=== PATIENT | male | born 1980 | race Caucasian/White ===

== ENCOUNTER 2019-11-03 11:04 | Emergency (ER) | payer OTHER, SELFPAY ==
[2019-11-03 11:20] VITALS: BP 132/93; PULSE 81; RESP 20; TEMP 36.7; O2SAT 98; BMI 25.1
[2019-11-03 11:32] VITALS: RESP 15
--- NOTE | 2019-11-03 12:02 | W.ED.GENADLT ---
Documented by User: SHENG Pryor 11/03/19 17:56 HPI - General Adult General: Chief complaint: Needlestick/Injury/Exposure Stated complaint: FLUID EXPOSURE Time Seen by Provider: 11/03/19 11:25 History of Present Illness: HPI narrative: Patient is a 39-year-old male who is in [employer] [facility] [employer] [facility] [employer] employed comes to the ED after a fluid exposure from a patient. 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 During that process sputum from the ICU patient flung into sitters face. He denies it getting into his mouth or eyes. He inform staff of the event and they told to come down to the ED to get some blood work done to check for HIV and hepatitis. Patient says that the ICU patient he was watching did report that he has hepatitis. Patient is having no current symptoms such as fever, upper respiratory symptoms, shortness of breath, chest pain, abdominal pain, nausea, vomiting, bladder or bowel symptoms. Associated symptoms: Deny chest pain, dyspnea, headache(s), nausea, rash, palpitations or vomiting Review of Systems Const: Denies: fever, chills or fatigue Eyes: Denies: change in vision or eye discomfort ENMT: Denies: throat pain, painful swallowing, nasal discharge or nasal congestion Card: Denies: chest pain, palpitations, edema, swelling of feet/ankles, shortness of breath on exertion or shortness of breath when lying down Resp: Denies: shortness of breath, productive cough or non-productive cough GI: Denies: abdominal pain, nausea, vomiting, diarrhea, constipation or blood in stool : Denies: flank pain, difficulty urinating, painful urination or blood in urine Musc: Denies: neck pain, back pain or extremity swelling Skin/Breast: Denies: rash or new lesion Neuro: Denies: headache, numbness in extremities or weakness in extremities PFS ED PFSH: Social History Smoking and tobacco status: current every day smoker cigarettes Years cigarettes smoked: 23 Quit status (tobacco): quit date established Second hand smoke exposure: No Smoking risk assessment/counseling performed?: Yes Tobacco counseling given: counseling >3 minutes Physical Exam Const: COMMON NORMALS: no apparent distress, oriented x3, healthy appearing and alert GENERAL APPEARANCE: cooperative and comfortable HENMT: COMMON NORMALS: normocephalic HEAD & SCALP: normocephalic MOUTH: oral and palatal mucosa normal THROAT: posterior oropharynx normal and uvula midline Neck/C-Spine: COMMON NORMALS: supple GENERAL: Yes normal visual inspection Resp: COMMON NORMALS: normal respiratory effort, no retractions, no use of accessory muscles and clear to auscultation bilaterally AUSCULTATION: clear to auscultation bilaterally Cardio: COMMON NORMALS: regular rate, regular rhythm, S1 normal heart sound, S2 normal heart sound, no gallops, no clicks, no murmurs and peripheral pulses 2+ throughout RATE: regular rate RHYTHM: regular rhythm HEART SOUNDS: S1 normal and S2 normal PERIPHERAL PULSES: pulses 2+ throughout GI: COMMON NORMALS: normal to inspection, nondistended, normoactive bowel sounds, soft to palpation, non-tender and no masses PALPATION: Yes soft : COMMON NORMALS: Yes no CVA tenderness BLADDER/KIDNEY EXAM: Yes no CVA tenderness Back/Pelvis: COMMON NORMALS: no CVA tenderness Extremity: COMMON NORMALS: normal to inspection Neuro: COMMON NORMALS: oriented x3 and moves all extremities SENSORIUM/ORIENTATION: Yes alert Skin: COMMON NORMALS: no rashes or lesions noted GENERAL SKIN EXAM: no rashes or lesions noted and dry skin Course Vital Signs: Vital signs: Vital Signs Temperature 98.1 F 11/03/19 11:20 Pulse Rate 81 11/03/19 11:20 Respiratory Rate 15 11/03/19 11:32 Blood Pressure 132/93 11/03/19 11:20 Pulse Oximetry 98 11/03/19 11:20 MDM - General Adult MDM Narrative: Medical decision making narrative: Patient is an employee here at [facility] and 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 Patient became aware and pulled out his breathing tube and during this incident the sitter got some sputum in his face. It did not go into his mouth or eyes. Patient told me that the ICU patient he was sitting stated he had hepatitis. He was told to come to the ED for evaluation and to get some blood work to check for hepatitis and HIV. Physical exam showed a healthy 39-year-old male in no acute distress or pain. He was having no current symptoms. HIV and hepatitis blood work was performed here in the ED and all were nonreactive. Patient was discharged and returned to work before lab results were complete. I informed patient that [facility] will notify him of the blood work results and that he should follow-up with his PCP in 7 days for reevaluation. Patient understood and agreed with plan. Lab Data: Attestation: I reviewed the patient's lab results. Labs: Lab Results 11/03/19 11/03/19 Range/Units 12:13 12:13 Hepatitis A IgM Ab Non-reactive (Nonreactive) Hep Bs Antigen Non-reactive (Nonreactive) Hep Bs Antibody 3.5 (0-8.5) Hep B Core Total A b Non-reactive (Nonreactive) Hepatitis C Antibo dy Non-reactive (Nonreactive) HIV 1&2 Ab & HIV 1 Ag Non-reactive (Non-Reactiv) HIV 1&2 Antibody Non-reactive (Non-Reactiv) Discharge Plan Discharge Patient Disposition: Home, Self-Care Clinical Impression: Exposure to blood or body fluid Condition: Stable Prescriptions: No Action clonidine HCl 0.1 mg tablet 0.1 mg PO BID PRN (Reason: anxiety) Qty: 60 RF: 2 gabapentin 300 mg capsule 300 mg PO QID Qty: 120 RF: 2 hydroxyzine HCl 50 mg tablet 50 mg PO TID PRN (Reason: anxiety) Qty: 90 RF: 2 baclofen 10 mg tablet 10 mg PO TID RF: 0 nicotine (polacrilex) 4 mg gum 4 mg BUCCAL Q8H PRN (Reason: nicotine cravings) RF: 0 Discharge Orders: Discharge Order (Routine); Ordered 11/03/19 Ordered By: Polo Chakraborty Referrals: Edwin Price MD [Primary Care Provider] - Discharge Diet: Regular Discharge Activity: Resume usual activity Patient Instructions: Blood/Body Fluid Exposure - Occupational Activity Restrictions/Additional Instructions: Follow-up with your PCP in 7 days for reevaluation. [facility] will contact you about the results of the blood tests performed today. Discharge Date/Time: 11/03/19 13:08 Coding Level of Care Code ED Student Services Vice President for Chg Fwd Exam Comprehensive Documented by User: Uriah Patel DO 11/03/19 18:01 HPI - General Adult General: Chief complaint: Needlestick/Injury/Exposure Stated complaint: FLUID EXPOSURE Time Seen by Provider: 11/03/19 11:25 PFSH ED PFSH: Social History Smoking and tobacco status: current every day smoker cigarettes Years cigarettes smoked: 23 Quit status (tobacco): quit date established Second hand smoke exposure: No Smoking risk assessment/counseling performed?: Yes Tobacco counseling given: counseling >3 minutes Course Vital Signs: Vital signs: Vital Signs Temperature 98.1 F 11/03/19 11:20 Pulse Rate 81 11/03/19 11:20 Respiratory Rate 15 11/03/19 11:32 Blood Pressure 132/93 11/03/19 11:20 Pulse Oximetry 98 11/03/19 11:20 MDM - General Adult MDM Narrative: Medical decision making narrative: Reviewed with Palmer agree with assessment and plan Lab Data: Labs: Lab Results 11/03/19 11/03/19 Range/Units 12:13 12:13 Hepatitis A IgM Ab Non-reactive (Nonreactive) Hep Bs Antigen Non-reactive (Nonreactive) Hep Bs Antibody 3.5 (0-8.5) Hep B Core Total A b Non-reactive (Nonreactive) Hepatitis C Antibo dy Non-reactive (Nonreactive) HIV 1&2 Ab & HIV 1 Ag Non-reactive (Non-Reactiv) HIV 1&2 Antibody Non-reactive (Non-Reactiv) Discharge Plan Discharge Patient Disposition: Home, Self-Care Clinical Impression: Exposure to blood or body fluid Condition: Stable Prescriptions: No Action clonidine HCl 0.1 mg tablet 0.1 mg PO BID PRN (Reason: anxiety) Qty: 60 RF: 2 gabapentin 300 mg capsule 300 mg PO QID Qty: 120 RF: 2 hydroxyzine HCl 50 mg tablet 50 mg PO TID PRN (Reason: anxiety) Qty: 90 RF: 2 baclofen 10 mg tablet 10 mg PO TID RF: 0 nicotine (polacrilex) 4 mg gum 4 mg BUCCAL Q8H PRN (Reason: nicotine cravings) RF: 0 Discharge Orders: Discharge Order (Routine); Ordered 11/03/19 Ordered By: Polo Chakraborty Referrals: Edwin Price MD [Primary Care Provider] - Discharge Diet: Regular Discharge Activity: Resume usual activity Patient Instructions: Blood/Body Fluid Exposure - Occupational Activity Restrictions/Additional Instructions: Follow-up with your PCP in 7 days for reevaluation. [facility] will contact you about the results of the blood tests performed today. Discharge Date/Time: 11/03/19 13:08 Coding Level of Care Code ED Student Services Vice President for Chg Fwd Exam Comprehensive
[2019-11-03 12:54] LABS: Hepatitis A Antibody IgM. Non-Reactive (Nonreactive); Hepatitis B Surface AB. 3.5 (0-8.5); Hepatitis B Surface Antigen. Non-Reactive (Nonreactive); Hepatitis C Virus Antibody Non-Reactive (Nonreactive)
[2019-11-03 13:50] LABS: HIV 1 & 2 Antibody Non-Reactive (Non-Reactiv); HIV 1 & 2 Antigen Non-Reactive (Non-Reactiv)
== END 2019-11-03 13:08 | disposition home or self-care (01) ==
PROVIDERS: Emergency Provider Physician Assistant; PCP Family Medicine
DX: Z77.21 Contact with and (suspected) exposure to potentially hazardous body fluids (principal)
CPT/HCPCS: 12345; 36415; 86705; 86706; 86709; 86803; 87340; 87806; 99282

== ENCOUNTER 2020-06-25 07:59 | Inpatient (IN) | payer SELFPAY ==
[2020-06-25] VITALS (21 sets, daily range): BP systolic 121–150; BP diastolic 85–110; PULSE 87–122; RESP 12–26; TEMP 36.1–37; O2SAT 94–98; BMI 26.6
--- NOTE | 2020-06-25 08:33 | US_ITS ---
WS: [id number] ULTRASOUND ABDOMEN LIMITED CLINICAL INFORMATION: abd pain COMPARISON: None. FINDINGS: Exam somewhat limited by bowel gas. Liver Size: Upper limits of normal Craniocaudal length: 15.7 cm. Echogenicity: Dense Surface nodularity: None. Mass (size and location): None. Bile ducts Intrahepatic ducts: Normal. Common bile duct diameter: 0.3 cm. Gallbladder Normal. Gallstones: None. Gallbladder sludge: None. Gallbladder wall thickening: None. Pericholecystic fluid: None. Sonographic Valente sign: Absent. Pancreas Normal as visualized. Right kidney: Normal. Hydronephrosis: None. Size: 10.6 cm x 5.3 cm x 4.4 cm. Abdominal aorta and IVC Visualized portions are normal. Ascites: None. US/US liver [id number] IMPRESSION: 1. Exam somewhat limited by bowel gas. 2. Diffuse fatty infiltration of the liver. Liver size upper limits of normal. 3. Normal gallbladder. 4. No hydronephrosis in right kidney. 5. No other significant findings.
--- NOTE | 2020-06-25 08:33 | ECG_ITS ---
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 Measurements Intervals [place] Rate: 105 P: 58 MA: 123 QRS: 53 QRSD: 88 T: 47 QT: 344 QTc: 455 Interpretive Statements SINUS TACHYCARDIA NONSPECIFIC T-WAVE ABNORMALITY ABNORMAL RHYTHM ECG Compared to ECG 05/26/2019 15:55:38 T-wave abnormality now present Sinus rhythm no longer present Short MA interval no longer present Electronically Signed On 06-25-2020 22:22:02 PATTERN DESIGNER by Wei Castillo M.D. [id number]
[2020-06-25] MEDS: LORazepam 2 mg/mL INJ 1 mL IVP ×5 (08:41→20:57)
[2020-06-25] MEDS: sodium chloride 0.9% 1,000 ML 999 ML IV ×2 (08:41→09:22)
[2020-06-25] MEDS: ondansetron 2 mg/ML SDV 2 mL 4 MG IVP (08:41)
--- NOTE | 2020-06-25 08:43 | CTR_ITS ---
PROCEDURE INFORMATION: Exam: CT Abdomen And Pelvis With Contrast Exam date and time: 06/25/2020 8:47 AM Age: 39 years old Clinical indication: Nausea; Abdominal pain; Generalized; Additional info: Abd pain, nausea after heavy drinking TECHNIQUE: Imaging protocol: Computed tomography of the abdomen and pelvis with intravenous contrast. Radiation optimization: All CT scans at this facility use at least one of these dose optimization techniques: automated exposure control; mA and/or kV adjustment per patient size (includes targeted exams where dose is matched to clinical indication); or iterative reconstruction. Contrast material: OMNI 300; Contrast volume: 95 ml; Contrast route: INTRAVENOUS (IV); COMPARISON: CT abdomen pelvis w con* [id number] 05/03/2019 1:15 PM RADIATION DOSE METRICS: Total DLP (mGy-cm): 813.36 FINDINGS: Liver: There is diffuse decreased density of the liver indicating fatty liver. There are no obvious liver masses. Gallbladder and bile ducts: Normal. No calcified stones. No ductal dilation. Pancreas: Normal. No ductal dilation. Spleen: Normal. No splenomegaly. Adrenal glands: Normal. No mass. Kidneys and ureters: Normal. No hydronephrosis. Stomach and bowel: There is diffuse mural thickening of the colon especially in the sigmoid colon. There is also fatty infiltration of the wall of the colon having the halo fat sign. There is also mild mural thickening of the terminal ileum. This may be due to inflammatory bowel disease. Correlation with history is advised. There is no evidence of bowel obstruction or dilatation. Appendix: No evidence of appendicitis. Intraperitoneal space: Unremarkable. No free air. No significant fluid collection. Vasculature: Unremarkable. No abdominal aortic aneurysm. Lymph nodes: Unremarkable. No enlarged lymph nodes. Urinary bladder: Unremarkable as visualized. Reproductive: Unremarkable as visualized. Bones/joints: There is spondylolysis of L5 on the right side. No malalignment is seen.. No acute fracture. Soft tissues: Unremarkable. CT/CT abdomen pelvis w con* [id number] IMPRESSION: 1. Diffuse mural thickening of the colon also involving the terminal ileum. There is prominent fatty infiltration of the wall of the colon. This is most likely due to inflammatory bowel disease. 2. Fatty liver. 3. No other acute abnormality is seen with no evidence of obstruction free air free fluid. Radiation Dose CTDIVOL = (mGy): DLP = 813.36 (mGy-cm)
[2020-06-25] MEDS: pantoprazole 40 mg SDV 80 MG IVP (08:49)
[2020-06-25 08:53] LABS: Basophils # 0.1 10^3/uL (0.0-0.1); Basophils % 0.6 %; Eosinophils # 0.2 10^3/uL (0.0-0.8); Eosinophils % 1.4 %; Hemoglobin 16.9 g/dL (11.7-16.6); Lymphocytes # 3.1 10^3/uL (0.8-4.8); Lymphocytes % 27.9 %; Mean Corpuscular HGB Conc 36.7 g/dL (30.0-36.0); Mean Corpuscular Hemoglobin 33.1 pg (28.0-34.0); Mean Corpuscular Volume 90.2 fL (80-94); Mean Platelet Volume 10.5 fL (7.4-10.4); Monocytes # 0.7 10^3/uL (0.2-0.9); Monocytes % 6.6 %; Neutrophils # 7.01 10^3/uL (1.8-7.7); Neutrophils % 63.1 %; Nucleated Red Blood Cells % 0 %; Platelet Count 175 10^3/cmm (130-400); Red Cell Distribution Width 13.2 % (12.1-15.1); White Blood Count 11.1 10^3/uL (4.0-10.0)
[2020-06-25 09:01] LABS: INR 1.03 (0.8-1.2); Partial Thromboplastin Time 27.8 SECONDS (23.9-36.7)
[2020-06-25 09:06] LABS: Alanine Aminotransferase 142 U/L (0-41); Albumin Level 3.9 g/dL (3.5-5.2); Alcohol Level 60 mg/dL (0-10); Alkaline Phosphatase 205 IU/L (40-130); Aspartate Amino Transferase 269 U/L (0-40); Blood Urea Nitrogen 6 mg/dL (6-20); Calcium 8.8 mg/dL (8.5-10.5); Carbon Dioxide 23 mmol/L (22-29); Chloride 94 mmol/L (98-107); Globulin 2.7 g/dL (1.3-4.6); Glomerular Filtration Rate 83.2 mL/min (90-130); Glucose 111 mg/dL (65-115); Lipase 30 U/L (13-60); Osmolality Calculated 280 mOsm/kg (285-295); Sodium 136 mmol/L (136-145); Total Bilirubin 1.5 mg/dL (0.15-1.2); Total Protein 6.6 g/dL (6.6-8.7)
[2020-06-25 09:08] LABS: Anion Gap 22.1 (5-19); Potassium 3.1 mmol/L (3.5-5.1)
[2020-06-25] MEDS: promethazine 25 mg/mL SDV 1 mL IM (09:20)
--- NOTE | 2020-06-25 09:20 | ED_ITS ---
HPI - Alcohol General: Chief Complaint: Alcohol Stated Complaint: Drinking Heavily Recently/Unable to eat/Nausea Time Seen by Provider: 06/25/20 08:01 History of Present Illness: HPI narrative: 39-year-old male comes in complaining of acute nausea and vomiting that has been progressively worsening to the point where he cannot keep down water. He states his he drinks regularly daily throughout the entire day. Earlier this year he was involved in an inpatient rehab program after he was discharged he states he did fairly well he continued on outpatient medications until he ran out and then he did not do any follow-up through [facility] as an outpatient so he stopped taking his medication shortly after began drinking again he is been continually escalating his drinking since then. Initially tells me is not vomited any blood or passing blood in the stool or had any melenic stools but after he left the room he reports having had some hematemesis. MD complaint: alcohol dependence Last drink: Just [employer]PER[employer] Chronic alcohol use: Yes Previous visits for alcohol intoxication: Yes Recent trauma: No Associated symptoms: Reports abdominal pain, depression, hematemesis, nausea and vomiting; Deny diaphoresis, involuntary movements, melena, seizure-like activity, suicidal ideation or syncope Treatments prior to arrival: none Review of Systems Const: Denies: diaphoresis ENMT: Denies: throat pain, ear or mastoid pain, nasal discharge or nasal congestion Card: Denies: syncope Resp: Denies: dyspnea, productive cough or non-productive cough GI: Reports: abdominal pain, nausea, vomiting and hematemesis; Denies: melena : Denies: flank pain, dysuria, urinary frequency or urinary urgency Skin/Breast: Denies: rash or pruritus Neuro: Denies: seizure-like activity or involuntary movements Psych: Reports: depression; Denies: suicidal ideation [facility] ED PFSH: Medical History (Updated 06/25/20 @ 12:52 by Uriah Patel DO) Alcoholism Depression with anxiety History of drug use Tobacco dependency Family History Other Cancer Social History Smoking and tobacco status: current every day smoker cigarettes Years cigarettes smoked: 23 Quit status (tobacco): quit date established Second hand smoke exposure: No Smoking risk assessment/counseling performed?: Yes Tobacco counseling given: counseling >3 minutes Physical Exam Const: COMMON NORMALS: no acute distress GENERAL APPEARANCE: cooperative and comfortable ORIENTATION/CONSCIOUSNESS: Yes awake, Yes oriented to person, Yes oriented to place and Yes oriented to time HENMT: COMMON NORMALS: normocephalic, atraumatic and hearing grossly normal bilaterally HEAD & SCALP: normocephalic and atraumatic Eye: COMMON NORMALS: Equal, round and reactive pupils present, EOMs intact b ilaterally, conjunctivae normal and no scleral icterus CONJUNCTIVA: Yes conjunctivae normal PUPIL: Yes Equal, round and reactive pupils present Neck/C-Spine: COMMON NORMALS: full ROM, no lymphadenopathy, supple and no JVD Lymph: LYMPHATIC: no lymphadenopathy noted and no lymphedema noted Resp: COMMON NORMALS: normal respiratory effort, No retractions, No use of accessory muscles and clear to auscultation bilaterally AUSCULTATION: clear to auscultation bilaterally Cardio: COMMON NORMALS: no JVD, regular rate, regular rhythm and No murmurs present (Cardio) RATE: regular rate RHYTHM: regular rhythm GI: COMMON NORMALS: Soft to palpation and No hepatosplenomegaly present PALPATION: Yes Soft to palpation, Yes Tenderness to palpation present (GI) (epigastric), No Guarding due to palpation present (GI) and Yes No hepatos plenomegaly present Extremity: COMMON NORMALS: normal to inspection, capillary refill normal, no clubbing, cyanosis or edema, no calf tenderness and no pedal edema Neuro: SENSORIUM/ORIENTATION: Yes oriented to person, Yes oriented to place and Yes oriented to time Skin: COMMON NORMALS: no rashes or lesions noted GENERAL SKIN EXAM: no nataliia hes or lesions noted Course Vital Signs: Vital signs: Vital Signs Temperature 97.2 F L 06/25/20 08:08 Pulse Rate 117 H 06/25/20 11:07 Respiratory Rate 16 06/25/20 11:07 Blood Pressure 143/102 06/25/20 08:08 Pulse Oximetry 97 06/25/20 11:07 MDM - Alcohol MDM Narrative: Medical decision making narrative: Patient has signs symptoms of withdrawal in addition to that he has pancolitis appearance on his CT. He has had that previously seems to be indicative more of inflammatory bowel. We will go ahead and admit discussed Dr. Atwood orders have been written patient go to the ICU. Lab Data: Attestation: I reviewed the patient's lab results. Labs: Lab Results 06/25/20 06/25/20 06/25/20 Range/Units 08:21 08:21 08:21 WBC 11.1 H (4.0-10.0) 10^3/ uL RBC 5.10 (4.1-5.3) 10^6/u L Hgb 16.9 H (11.7-16.6) g/dL Hct 46.0 (42.0-52.0) % MCV 90.2 (80-94) fL MCH 33.1 (28.0-34.0) pg MCHC 36.7 H (30.0-36.0) g/dL RDW 13.2 (12.1-15.1) % Plt Count 175 (130-400) 10^3/c mm MPV 10.5 H (7.4-10.4) fL Neut % (Auto) 63.1 % Lymph % (Auto) 27.9 % [place] % (Auto) 6.6 % Eos % (Auto) 1.4 % Baso % (Auto) 0.6 % Neut # (Auto) 7.01 (1.8-7.7) 10^3/u L Lymph # (Auto) 3.1 (0.8-4.8) 10^3/u L [place] # (Auto) 0.7 (0.2-0.9) 10^3/u L Eos # (Auto) 0.2 (0.0-0.8) 10^3/u L Baso # (Auto) 0.1 (0.0-0.1) 10^3/u L Nucleated RBC % (a uto) 0 % Nucleated RBCs # 0.0 /100WBC PT 13.80 (12.1-14.9) SECO NDS INR 1.03 (0.8-1.2) APTT 27.8 (23.9-36.7) SECO NDS Sodium 136 (136-145) mmol/L Potassium 3.1 L (3.5-5.1) mmol/L Chloride 94 L (98-107) mmol/L Carbon Dioxide 23 (22-29) mmol/L Anion Gap 22.1 H (5-19) BUN 6 (6-20) mg/dL Creatinine 1.0 (0.7-1.2) mg/dL GFR Calculation 83.2 L (90-130) mL/min Glucose 111 (65-115) mg/dL Calculated Osmolal ity 280 L (285-295) mOsm/k g Lactic Acid (0.5-2.2) mmol/L Calcium 8.8 (8.5-10.5) mg/dL Magnesium (1.7-2.3) mg/dL Total Bilirubin 1.5 H (0.15-1.2) mg/dL AST 269 H (0-40) U/L ALT 142 H (0-41) U/L Alkaline Phosphata se 205 H (40-130) IU/L Total Protein 6.6 (6.6-8.7) g/dL Albumin 3.9 (3.5-5.2) g/dL Globulin 2.7 (1.3-4.6) g/dL Lipase 30 (13-60) U/L TSH (0.27-4.20) uIU/ mL Urine Color (Yellow) Urine Appearance (CLEAR) Urine pH (5-7) Ur Specific Gravit y (1.005-1.030) Urine Protein (Negative) Urine Glucose (UA) (Normal) Urine Ketones (Negative) Urine Blood (Negative) Urine Nitrate (Negative) Urine Bilirubin (Negative) Urine Urobilinogen (Negative) mg/dL Ur Leukocyte Melyssa ase (Negative) Urine RBC (0-2) /hpf Urine WBC (0-5) /hpf Ur Squamous Epith Cells (0-5) /hpf Calcium Oxalate Cr ystal /hpf Amorphous Sediment Urine Bacteria (NONE) /hpf Urine Mucus /hpf Ethyl Alcohol 60 H (0-10) mg/dL 06/25/20 06/25/20 06/25/20 Range/Units 08:21 09:33 11:44 WBC (4.0-10.0) 10^3/ uL RBC (4.1-5.3) 10^6/u L Hgb (11.7-16.6) g/dL Hct (42.0-52.0) % MCV (80-94) fL MCH (28.0-34.0) pg MCHC (30.0-36.0) g/dL RDW (12.1-15.1) % Plt Count (130-400) 10^3/c mm MPV (7.4-10.4) fL Neut % (Auto) % Lymph % (Auto) % [place] % (Auto) % Eos % (Auto) % Baso % (Auto) % Neut # (Auto) (1.8-7.7) 10^3/u L Lymph # (Auto) (0.8-4.8) 10^3/u L [place] # (Auto) (0.2-0.9) 10^3/u L Eos # (Auto) (0.0-0.8) 10^3/u L Baso # (Auto) (0.0-0.1) 10^3/u L Nucleated RBC % (a uto) % Nucleated RBCs # /100WBC PT (12.1-14.9) SECO NDS INR (0.8-1.2) APTT (23.9-36.7) SECO NDS Sodium (136-145) mmol/L Potassium (3.5-5.1) mmol/L Chloride (98-107) mmol/L Carbon Dioxide (22-29) mmol/L Anion Gap (5-19) BUN (6-20) mg/dL Creatinine (0.7-1.2) mg/dL GFR Calculation (90-130) mL/min Glucose (65-115) mg/dL Calculated Osmolal ity (285-295) mOsm/k g Lactic Acid 1.0 (0.5-2.2) mmol/L Calcium (8.5-10.5) mg/dL Magnesium 1.9 (1.7-2.3) mg/dL Total Bilirubin (0.15-1.2) mg/dL AST (0-40) U/L ALT (0-41) U/L Alkaline Phosphata se (40-130) IU/L Total Protein (6.6-8.7) g/dL Albumin (3.5-5.2) g/dL Globulin (1.3-4.6) g/dL Lipase (13-60) U/L TSH 2.19 (0.27-4.20) uIU/ mL Urine Color [place] (Yellow) Urine Appearance Clear (CLEAR) Urine pH 6.5 (5-7) Ur Specific Gravit y 1.010 (1.005-1.030) Urine Protein Trace (Negative) Urine Glucose (UA) Norm (Normal) Urine Ketones 1+ H (Negative) Urine Blood 3+ H (Negative) Urine Nitrate Negative (Negative) Urine Bilirubin Neg (Negative) Urine Urobilinogen 1 H (Negative) mg/dL Ur Leukocyte Melyssa ase Negative (Negative) Urine RBC 5-10 H (0-2) /hpf Urine WBC 0-4 H (0-5) /hpf Ur Squamous Epith Cells 0-4 H (0-5) /hpf Calcium Oxalate Cr ystal 0-4 H /hpf Amorphous Sediment Not Reportable Urine Bacteria Trace (NONE) /hpf Urine Mucus Trace /hpf Ethyl Alcohol (0-10) mg/dL Discharge Plan Discharge Patient Disposition: Admitted As Inpatient Clinical Impression: Alcohol withdrawal, Alcoholism, Hypokalemia, Transaminitis, Diarrhea, Vomiting Condition: Stable Coding Level of Care Code ED Scrap Materials Buyer for Derek Fwd Exam Comprehensive
[2020-06-25] MEDS: iohexol 300 mg/mL 100 mL Btl IV (09:28)
[2020-06-25] MEDS: folic acid 1 MG, multivitamin inj 10 ML, thiamine 100 MG in sodium chloride 0.9% 1,000 ML 252.8 MG IV (10:09)
[2020-06-25] MEDS: lidocaine 1% 5 ML in potassium chloride premix 100 ML 25 ML IV (10:09)
[2020-06-25 10:25] LABS: Urine Appearance Clear (CLEAR); Urine Color Orange (Yellow); pH Urine 6.5 (5-7)
[2020-06-25 10:26] LABS: Add Urine Microscopic? YES; Bilirubin Urine Neg (Negative); Blood Urine 3+ (Negative); Glucose Urine UA Norm (Normal); Ketones Urine 1+ (Negative); Leukocyte Esterase Urine Negative (Negative); Nitrate Urine Negative (Negative); Protein Urine Trace (Negative); Urobilinogen Urine 1 mg/dL (Negative)
[2020-06-25 10:43] LABS: Add Urine Culture? No; Bacteria Urine TRACE /hpf; Calcium Oxalate Crystals Urine 0-4 /hpf; Mucus Urine TRACE /hpf; Squamous Epithelial Cell Urine 0-4 /hpf (0-5); WBC Urine 0-4 /hpf (0-5)
--- NOTE | 2020-06-25 11:22 | ECG_ITS ---
[facility] Test Date: 2020-06-25 Pat Name: Warner Bermudez Department: Room: Gender: Male Manager Of Case: : 1980 Requested By: Uriah Carvajal Order Number: [id number] Mendel MD: Wei Castillo M.D. Measurements Intervals [place] Rate: 103 P: 51 TN: 112 QRS: 52 QRSD: 88 T: 40 QT: 338 QTc: 444 Interpretive Statements SINUS TACHYCARDIA WITH SHORT [place] INTERVAL NONSPECIFIC T-WAVE ABNORMALITY ABNORMAL RHYTHM ECG Compared to ECG 06/25/2020 09:16:53 Short TN interval now present T-wave abnormality still present Electronically Signed On 06-25-2020 22:22:10 WIRE SETTER by Wei Castillo M.D. [id number]
--- NOTE | 2020-06-25 12:04 | P.HP_ITS ---
Providers/Chief Complaint Primary Care Provider: Edwin Price MD Chief Complaint: Drinking Heavily Recently/Unable to eat/Nausea History of Present Illness Warner Bermudez is a 39 year old male who presented to the hospital with comp laints of unable to cope anymore secondary to alcoholism. He has previously been through rehab but has been drinking since December. This morning he had done a shot of whiskey about 6 AM. He is worried he may be going through withdrawal. He denies any fevers at home. He has vomited several times and been nauseous in the emergency department. He has had some loose stool, and reports black stools on occasion. This has been going on at least about a month. No history of fever, Covid, exposure to Covid. He has had anorexia presumably secondary to his alcoholism. He is interested in outpatient rehabilitation. Review of Systems General: Reports: 10 or more systems reviewed and unremarkable except in HPI and below Const: Denies: fever(s) Eyes: Denies: change in vision ENMT: Denies: throat pain Card: Denies: chest pain Resp: Denies: dyspnea GI: Reports: abdominal pain, nausea and vomiting : Denies: difficulty urinating Musc: Denies: neck pain Skin/Breast: Denies: rash Neuro: Denies: headache(s) Psych: Reports: anxiety Endo: Denies: polyuria Joseph/Lymph: Denies: easy bruising All/Imm: Denies: urticaria Medications/Allergies Home Medications Medication Instructions Recorded Confirmed Last Taken Type No Known Home Medications 06/25/20 06/25/20 Unknown History Allergies Allergy/AdvReac Type Severity Reaction Status Date / Time almond Allergy Unknown Verified 08/16/19 10:37 walnut Allergy Unknown Verified 08/16/19 10:37 PFSH Acute PFSH: Medical History (Updated 06/25/20 @ 12:52 by Uriah Patel DO) Alcoholism Depression with anxiety History of drug use Tobacco dependency Family History Other Cancer Social History Smoking and tobacco status: current every day smoker cigarettes Years cigarettes smoked: 23 Quit status (tobacco): quit date established Second hand smoke exposure: No Smoking risk assessment/counseling performed?: Yes Tobacco counseling given: counseling >3 minutes Supplemental PFSH Information: Denies any prior history of surgery. Vitals/I&O/Wt Last Vital Signs Temp 97.2 F L 06/25/20 08:08 Pulse 117 H 06/25/20 11:07 Resp 16 06/25/20 11:07 BP 143/102 06/25/20 08:08 Pulse Ox 97 06/25/20 11:07 06/24/20 06/25/20 06/25/20 22:59 06:59 14:59 Intake Total 682.65 / 682.65 Balance 682.65 / 682.65 Weight last 48 hrs Weight 81.647 kg Physical Exam Narrative: EXAM NARRATIVE: General exam is a white male, slightly tremulous, able to answer questions and with significant tachycardia and hypertension HEENT pupils equally round. Oropharynx clear Neck supple no lymphadenopathy or thyromegaly Cardiovascular tachycardic, no murmur Lungs clear no wheezing or crackles Abdomen is soft with positive bowel sounds. Slight tenderness present over liver edge and epigastric area. was deferred Extremities no cyanosis clubbing or edema, cap refill brisk Skin no rash Neuro no obvious focal deficits Data : 06/25/20 08:21 06/25/20 08:21 Micro: Microbiology 06/25/20 11:44 Blood Culture - Preliminary Blood SPECIMEN COLLECTED 06/25/20 08:21 Blood Culture - Preliminary Blood SPECIMEN COLLECTED Other data: CT abdomen demonstrated some mural thickening of the colon involving the terminal ileum fatty liver. Hepatic ultrasound with no other revealing fe atures EKG sinus tachycardia, normal axis, nonspecific changes Total bilirubin 1.5, AST 269, ALT 142, alk phos 205 Urinalysis has 0-4 whites, 5-10 reds Alcohol level 60 Recent previous hepatitis testing negative A&P Assessment and plan (1) Alcoholism: Patient with significant alcohol intake. He appears to be having some withdrawal with hypertension, and tachycardia even though he is still registering alcohol in his blood. I think he is at high risk for deterioration for worsening withdrawal symptoms. [facility] protocol Thiamine, multivitamin Hydration Status: Acute (2) Alcohol withdrawal: See notations above Status: Acute (3) Hypokalemia: Supplementation Check magnesium Status: Acute (4) Transaminitis: Secondary to alcoholism and likely some element of alcoholic hepatitis Repeat LFTs tomorrow Status: Acute (5) Tobacco dependency: Nicotine patch Status: Inactive (6) Diarrhea: CT scan abnormal with some thickening of cecum and terminal ileum. Cannot rule out inflammatory bowel disease considering patient's history of diarrhea. Could consider outpatient work-up. Check stool Hemoccult Status: Acute (7) Vomiting: Several streaks of blood noted when patient vomited in the ER. Clear liquids for now Protonix 40 mg IV every 12 hours Advance diet as patient improves Appears to be associated with dehydration. Status: Acute Additional A&P Information Full code SCDs for DVT prophylaxis. Avoid pharmacological anticoagulation secondary to history of some blood streaks in emesis Attestations Medical Necessity Statement*: Will need greater than 2 midnight stay for evaluation and treatment of of alcohol withdrawal there is ongoing as well as associated transaminitis, alcoholic hepatitis, hypokalemia, dehydration. Time Spent in Patient Care: Greater than 35 minutes Coding Level of Care Code Acute Online Merchandising Specialist for Chg Fwd Diagnoses Alcoholism F10.20 Alcohol withdrawal F10.239 Hypokalemia E87.6 Transaminitis R74.01 Tobacco dependency F17.200 Diarrhea R19.7 Vomiting R11.10
[2020-06-25 12:11] LABS: Magnesium 1.9 mg/dL (1.7-2.3); Thyroid Stimulating Hormone 2.19 uIU/mL (0.27-4.20)
--- NOTE | 2020-06-25 15:41 | PC.NURSE ---
Patient found standing outside of bed. He has removed all EKG electrodes and IV. He was confronted about why he has done this. He was asked if he was trying to leave. He denies trying to leave. He is unable to verbalize reasoning for removing the all monitoring equipment. His bedding was changed. He was returned to bed. Cardiac monitoring resumed.
[2020-06-25] MEDS: chlordiazePOXIDE 25 mg Capsule PO (17:00)
[2020-06-25] MEDS: D5-NS 0.45% + KCL 20 mEq 20 MEQ/1,000 ML BAG 100 MEQ IV (17:33)
[2020-06-25] MEDS: nicotine 21 mg Patch 1 PATCH TRANSDERMA (17:33)
[2020-06-25] MEDS: LORazepam 2 mg/mL INJ 1 mL IM (18:02)
[2020-06-25] MEDS: pantoprazole DR 40 mg Tablet PO (18:05)
[2020-06-25] MEDS: dexmedetomidine 400 MCG in sodium chloride 0.9% (100 ml) 100 ML IV (20:38)
[2020-06-26] VITALS (46 sets, daily range): BP systolic 112–147; BP diastolic 68–104; PULSE 69–90; RESP 13–29; TEMP 37.3; O2SAT 92–98
[2020-06-26] MEDS: LORazepam 2 mg/mL INJ 1 mL IVP ×8 (00:50→23:42)
[2020-06-26] MEDS: chlordiazePOXIDE 25 mg Capsule PO ×4 (00:50→23:16)
[2020-06-26 04:00] LABS: Basophils % 0.6 %; Eosinophils # 0.2 10^3/uL (0.0-0.8); Eosinophils % 2.6 %; Hematocrit 39.6 % (42.0-52.0); Hemoglobin 13.8 g/dL (11.7-16.6); Lymphocytes # 1.5 10^3/uL (0.8-4.8); Lymphocytes % 21.8 %; Mean Corpuscular HGB Conc 34.8 g/dL (30.0-36.0); Mean Corpuscular Hemoglobin 32.9 pg (28.0-34.0); Mean Corpuscular Volume 94.5 fL (80-94); Mean Platelet Volume 10.6 fL (7.4-10.4); Monocytes # 0.4 10^3/uL (0.2-0.9); Monocytes % 5.7 %; Neutrophils # 4.72 10^3/uL (1.8-7.7); Neutrophils % 68.4 %; Nucleated Red Blood Cells % 0 %; Platelet Count 134 10^3/cmm (130-400); Red Blood Count 4.19 10^6/uL (4.1-5.3); Red Cell Distribution Width 13.7 % (12.1-15.1); White Blood Count 6.9 10^3/uL (4.0-10.0)
[2020-06-26] MEDS: D5-NS 0.45% + KCL 20 mEq 20 MEQ/1,000 ML BAG 100 MEQ IV (04:02)
[2020-06-26 04:29] LABS: Alanine Aminotransferase 96 U/L (0-41); Albumin Level 3.2 g/dL (3.5-5.2); Alkaline Phosphatase 155 IU/L (40-130); Anion Gap 14.8 (5-19); Aspartate Amino Transferase 149 U/L (0-40); Blood Urea Nitrogen 6 mg/dL (6-20); Calcium 8.3 mg/dL (8.5-10.5); Carbon Dioxide 22 mmol/L (22-29); Chloride 106 mmol/L (98-107); Globulin 2.1 g/dL (1.3-4.6); Glomerular Filtration Rate 83.2 mL/min (90-130); Glucose 101 mg/dL (65-115); Magnesium 1.8 mg/dL (1.7-2.3); Osmolality Calculated 286 mOsm/kg (285-295); Potassium 3.8 mmol/L (3.5-5.1); Sodium 139 mmol/L (136-145); Total Bilirubin 1.7 mg/dL (0.15-1.2); Total Protein 5.3 g/dL (6.6-8.7)
[2020-06-26] MEDS: pantoprazole DR 40 mg Tablet PO ×2 (09:47→17:15)
[2020-06-26] MEDS: thiamine 100 mg Tablet PO (09:47)
[2020-06-26] MEDS: multivitamin therapeutic Tablet 1 TAB PO (09:47)
[2020-06-26] MEDS: folic acid 1 mg Tablet PO (09:48)
--- NOTE | 2020-06-26 10:02 | PM.PN ---
Subjective Subjective: Interval history: Warner is a 39 yo male c/o alcohol withdrawal, anxiety, and insomnia. Today he states he feels tired and weak, but he is glad he finally slept. He denies feeling nauseous and wants to eat a hamburger. Medications: Reviewed: Yes Vitals/I&O/Wt Last Vital Signs Temp 98.6 F 06/25/20 19:00 Pulse 76 06/26/20 09:06 Resp 23 H 06/26/20 06:30 BP 125/98 06/26/20 06:30 Pulse Ox 96 06/26/20 09:06 06/25/20 06/26/20 06/26/20 22:59 06:59 14:59 Intake Total 1805.492 / 2488.142 1000 / 3488.142 53.52 / 53.52 Output Total 304 / 304 550 / 854 Balance 1501.492 / 2184.142 450 / 2634.142 53.52 / 53.52 Weight last 48 hrs Weight 94.347 kg Weight 81.647 kg Physical Exam Const: GENERAL APPEARANCE: cooperative, comfortable and lethargic NUTRITIONAL APPEARANCE: obese ORIENTATION/CONSCIOUSNESS: Yes oriented to person, Yes oriented to place, Yes oriented to time and Yes lethargic OTHER: Patient is sleepy but arousable and able to answer questions. Neck/C-Spine: COMMON NORMALS: no JVD Resp: COMMON NORMALS: normal respiratory effort, No retractions, No use of accessory muscles, clear to auscultation bilaterally and percussion normal AUSCULTATION: clear to auscultation bilaterally PERCUSSION: percussion normal Cardio: COMMON NORMALS: no JVD, regular rate, regular rhythm, S1 normal heart sound present, S2 normal heart sound present, No gallops present (Cardio), No clicks present (Cardio), No murmurs present (Cardio), No rub (Cardio) and Peripheral pulses 2+ throughout RATE: regular rate RHYTHM: regular rhythm HEART SOUNDS: S1 normal heart sound present and S2 normal heart sound present PERIPHERAL PULSES: Peripheral pulses 2+ throughout GI: COMMON NORMALS: Normal to inspection, nondistended, normoactive bowel sounds present, Soft to palpation and No hepatosplenomegaly present; negative for no masses INSPECTION: Yes normal to inspection PALPATION: Yes Soft to palpation and Yes No hepatosplenomegaly present OTHER: LLQ tenderness Neuro: SENSORIUM/ORIENTATION: Yes oriented to person, Yes oriented to place, Yes oriented to time and Yes lethargic Data : 06/26/20 03:28 06/26/20 03:28 Micro: Microbiology 06/25/20 11:44 Blood Culture - Preliminary Blood SPECIMEN COLLECTED 06/25/20 08:21 Blood Culture - Preliminary Blood SPECIMEN COLLECTED A&P Assessment and plan (1) Alcohol withdrawal: Continue fluids. Continue CIWA protocol Placed on Precedex drip last night. 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 Status: Acute (5) Tobacco dependency: Nicotine patch Status: Inactive (6) Diarrhea: CT scan abnormal with some thickening of cecum and terminal ileum. Cannot rule out inflammatory bowel disease considering patient's history of diarrhea. Could consider outpatient work-up. Stool Hemoccult is pending. Patient has not had any diarrhea here. Status: Acute (7) Vomiting: Several streaks of blood noted when patient vomited in the ER. Advance diet Change Protonix to p.o. Status: Acute Additional A&P Information Full code SCDs for DVT prophylaxis. Avoid pharmacological anticoagulation secondary to history of some blood streaks in emesis Attestations Medical Necessity Statement*: Needs continued hospitalization in the ICU secondary to significant withdrawal requiring IV Precedex Coding Level of Care Code Acute Show Design Supervisor for Chg Fwd Diagnoses Alcohol withdrawal F10.239 Alcoholism F10.20 Hypokalemia E87.6 Transaminitis R74.01 Tobacco dependency F17.200 Diarrhea R19.7 Vomiting R11.10
[2020-06-26] MEDS: D5-NS 0.45% + KCL 20 mEq 20 MEQ/1,000 ML BAG 75 MEQ IV (14:04)
[2020-06-26] MEDS: dexmedetomidine 400 MCG in sodium chloride 0.9% (100 ml) 100 ML IV (15:37)
[2020-06-26] MEDS: nicotine 21 mg Patch 1 PATCH TRANSDERMA (17:15)
--- NOTE | 2020-06-26 23:20 | PC.NURSE ---
Patient c/o increased anxiety that has been uncontrolled this far. RN has given IVP Ativan and titrated Precedex up to max limit of 0.7mcg/kg/hr. Pt is currently still having episodes of anxiety to which he has been thrashing back and forth in bed, and his IV was pulled from his arm. New IV placed by RN, and MD automation machine operator was notified of increased agitation and anxiety. MD gave v/o for PO Librium to be given early, an has given okay for Precedex max to be increased to 1.4mcg/kg/hr by titration as needed with caution/careful monitoring of HR not to decrease under 60BPM.
[2020-06-27] VITALS (23 sets, daily range): BP systolic 63–161; BP diastolic 34–114; PULSE 66–130; RESP 19–26; TEMP 36.4–37.6; O2SAT 94–99
--- NOTE | 2020-06-27 01:23 | PC.NURSE ---
Patient was found standing outside of bed with gown off, and had disconnected himself from leads/SPO2/all other lines. RN asked why patient had taken off hospital gown and placed his personal clothing back on and he replied he was wanting to go and smoke/get some fresh air. RN explained that he could not leave the unit and return after a smoke break was completed, and asked if the patient was wanting to leave AMA. Pt stated no and said that he was claustrophobic, and the roy were closing in. Meds given, patient assisted back to ICU bed, and RN stayed at bedside until patient anxiety levels decreased for sleep to be obtained.
[2020-06-27] MEDS: dexmedetomidine 400 MCG in sodium chloride 0.9% (100 ml) 100 ML 21.2 MCG IV (02:40)
[2020-06-27 03:55] LABS: Basophils # 0.1 10^3/uL (0.0-0.1); Basophils % 0.8 %; Eosinophils # 0.2 10^3/uL (0.0-0.8); Eosinophils % 3.2 %; Hematocrit 39.2 % (42.0-52.0); Hemoglobin 13.9 g/dL (11.7-16.6); Lymphocytes # 1.8 10^3/uL (0.8-4.8); Mean Corpuscular HGB Conc 35.5 g/dL (30.0-36.0); Mean Corpuscular Hemoglobin 33.3 pg (28.0-34.0); Mean Corpuscular Volume 93.8 fL (80-94); Mean Platelet Volume 10.5 fL (7.4-10.4); Monocytes # 0.3 10^3/uL (0.2-0.9); Monocytes % 4.8 %; Neutrophils # 4.19 10^3/uL (1.8-7.7); Neutrophils % 63.4 %; Nucleated Red Blood Cells % 0 %; Platelet Count 127 10^3/cmm (130-400); Red Blood Count 4.18 10^6/uL (4.1-5.3); Red Cell Distribution Width 13.4 % (12.1-15.1); White Blood Count 6.6 10^3/uL (4.0-10.0)
[2020-06-27] MEDS: D5-NS 0.45% + KCL 20 mEq 20 MEQ/1,000 ML BAG 75 MEQ IV ×2 (05:17→17:32)
[2020-06-27 05:33] LABS: Alanine Aminotransferase 93 U/L (0-41); Albumin Level 3.1 g/dL (3.5-5.2); Alkaline Phosphatase 160 IU/L (40-130); Anion Gap 16.9 (5-19); Aspartate Amino Transferase 145 U/L (0-40); Blood Urea Nitrogen 4 mg/dL (6-20); Calcium 8.4 mg/dL (8.5-10.5); Carbon Dioxide 20 mmol/L (22-29); Chloride 105 mmol/L (98-107); Globulin 2.4 g/dL (1.3-4.6); Glomerular Filtration Rate 83.2 mL/min (90-130); Glucose 121 mg/dL (65-115); Magnesium 1.8 mg/dL (1.7-2.3); Osmolality Calculated 284 mOsm/kg (285-295); Potassium 3.9 mmol/L (3.5-5.1); Sodium 138 mmol/L (136-145); Total Bilirubin 1.4 mg/dL (0.15-1.2); Total Protein 5.5 g/dL (6.6-8.7)
--- NOTE | 2020-06-27 06:33 | PC.NURSE ---
Shift Summary: Patient has exhibited severe symptoms of anxiety/depression/agitation throughout shift in total. Verbalized an emergent need to be set back up on services with [facility] [place] after d/c from inpatient care. RN has had to redirect patient frequently the need for using call light and not getting up on own/ripping lines off of self. Precedex, ICP Ativan, PO Hydromorphone given during shift in efforts to control pain/anxiety as observed. Patient has been extremely apologetic after extreme outbursts, and has shared fears of not being able to do this anymore . He denies suicide ideations when asked. Multiple episodes of loss of bowel/bladder function overnight as well. New IV site achieved after patient ripped previous access out. Precedex 0.8mcg/kg/hr (see mar flowsheet) 1/2 NS with 20KCL @75mL/hr. Estimated 1050 u/o Currently resting in bed. Has not received much rest until recent hour or so.
--- NOTE | 2020-06-27 08:50 | PC.NURSE ---
CIWA [address] BURROWS IN TO ROUND. WANTS PRECEDEX OFF TOLERATED
--- NOTE | 2020-06-27 09:52 | PC.RESP ---
SMOKING CESSATION INFORMATION SENT TO PATIENT.
[2020-06-27] MEDS: multivitamin therapeutic Tablet 1 TAB PO (10:21)
[2020-06-27] MEDS: LORazepam 2 mg Tablet PO ×3 (10:21→22:10)
[2020-06-27] MEDS: thiamine 100 mg Tablet PO (10:21)
[2020-06-27] MEDS: folic acid 1 mg Tablet PO (10:21)
[2020-06-27] MEDS: pantoprazole DR 40 mg Tablet PO ×2 (10:21→17:31)
[2020-06-27] MEDS: chlordiazePOXIDE 25 mg Capsule PO (10:21)
--- NOTE | 2020-06-27 11:09 | PC.NURSE ---
Addendum entered by Екатерина Renae RN 06/27/20 11:46: SPOKE WITH NANDO REGARDING HIS MOM CALLING & REPORTING THAT HE HAS BEEN SUICIDAL. HE DENIES EVER BEING SUICIDAL & STATES THAT HE IS UPSET THAT SHE STATED THIS. Original Note: PT MOM CALLED. SHE STATED THAT PT HAS BEEN SUICIDAL & THAT HE FREQUENTLY TELLS THEM THAT HE WON'T BE HERE FOR MUCH LONGER. SHE THINKS THAT HE NEEDS TO TALK TO A PSYCHIATRIST & GET SET UP WITH BEHAVIORAL HEALTH. WILL NOTIFY
--- NOTE | 2020-06-27 11:26 | PM.PN ---
Subjective Subjective: Interval history: Warner reports he is doing better. He is now off the Precedex drip. Medications: Reviewed: Yes Vitals/I&O/Wt Last Vital Signs Temp 98.9 F 06/27/20 00:00 Pulse 71 06/27/20 10:00 Resp 19 H 06/27/20 10:00 BP 88/73 06/27/20 10:00 Pulse Ox 96 06/27/20 10:00 06/26/20 06/27/20 06/27/20 22:59 06:59 14:59 Intake Total 1489.24 / 3174.843 1105.380 / 4280.223 487.810 / 487.810 Output Total 1810 / 1810 600 / 2410 550 / 550 Balance -320.76 / 1364.843 505.380 / 1870.223 -62.190 / -62.190 Weight last 48 hrs Weight 94.376 kg Weight 94.347 kg Physical Exam Narrative: EXAM NARRATIVE: General exam is a white male awake and alert. He is now eating. Cardiovascular regular rate and rhythm without murmur Lungs clear no wheezing or crackles Abdomen is soft with positive bowel sounds. Extremities no cyanosis clubbing or edema, cap refill brisk Const: OTHER: GI: INSPECTION: Yes normal to inspection Data : 06/27/20 03:30 06/27/20 03:25 Micro: Microbiology 06/26/20 10:05 Occult Blood (FIT) - Final Stool Routine Collection 06/25/20 11:44 Blood Culture - Preliminary Blood NEGATIVE TO DATE 06/25/20 08:21 Blood Culture - Preliminary Blood NEGATIVE TO DATE A&P Assessment and plan (1) Alcohol withdrawal: Improving. 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 Cannot rule out inflammatory bowel disease considering patient's history of diarrhea. Could consider outpatient work-up. Hemoccult is negative. Patient has not had any diarrhea here. Status: Acute (7) Vomiting: Several streaks of blood noted when patient vomited in the ER. Advance diet Change Protonix to p.o. No recurrence of vomiting while in the hospital. Status: Acute Additional A&P Information Full code SCDs for DVT prophylaxis. Avoid pharmacological anticoagulation secondary to history of some blood streaks in emesis Attestations Medical Necessity Statement*: Needs continued hospitalization secondary to active alcoholic withdrawal. Possible transition out of ICU today. Coding Level of Care Code Acute Regulatory Affairs Assistant for Chg Fwd Diagnoses Alcohol withdrawal F10.239 Alcoholism F10.20 Hypokalemia E87.6 Transaminitis R74.01 Tobacco dependency F17.200 Diarrhea R19.7 Vomiting R11.10
[2020-06-27] MEDS: sodium chloride 0.9% 500 ML 999 ML IV (12:00)
[2020-06-27] MEDS: LORazepam 2 mg/mL INJ 1 mL 0.5 MG IVP (12:50)
[2020-06-27] MEDS: LORazepam 2 mg/mL INJ 1 mL IVP ×2 (14:33→20:51)
--- NOTE | 2020-06-27 15:22 | PC.NURSE ---
PT C/O FREQUENT ANXIETY, STATES THAT HE CAN'T GET AWAY FROM THE THOUGHTS IN HIS HEAD. PT STATES THAT REHAB DIDN'T HELP HIM I PRETTY MUCH RAN THAT PLACE WOULD LIKE TO GET SET BACK UP WITH BE[facility]AVIORAL HEALTH CARE TO GET RESTARTED ON HIS MEDICATIONS. REQUESTS TO HAVE ATIVAN EVERY HOUR & MORE FREQUENTLY. CALMS DOWN IF I STAY IN ROOM & TALK TO HIM. TOLERATING PO INTAKE
--- NOTE | 2020-06-27 15:55 | PC.NURSE ---
REPORT CALLED TO EUSEBIO ON MED/SURG. PT & PERSONAL BELONGINGS TO ROOM 256-1. BEDSIDE REPORT ALSO GIVEN TO EUSEBIO. HIS DAD MET US AT ELEVATOR & WENT TO 256 WITH US.
[2020-06-27] MEDS: nicotine 21 mg Patch 1 PATCH TRANSDERMA (16:18)
[2020-06-27] MEDS: LORazepam 2 mg/mL INJ 1 mL IM (19:38)
[2020-06-27] MEDS: LORazepam 2 mg/mL INJ 1 mL 4 MG IVP (23:30)
[2020-06-27] MEDS: chlordiazePOXIDE 10 mg Capsule PO (23:45)
[2020-06-28] MEDS: LORazepam 2 mg/mL INJ 1 mL IVP ×5 (01:35→11:29)
[2020-06-28] MEDS: LORazepam 2 mg Tablet PO ×4 (03:06→21:17)
--- NOTE | 2020-06-28 03:11 | PC.NURSE ---
Patient came to nurses station and was talking to Elias HANNA. He asked this RN if I would come to his room at 0300 and this RN explained to him that his next CIWA scale was due at 0400, but that I did a PRN CIWA and he only scored a 4. At that time this RN gave 2mg ativan PO. At this time the patient became agitated and stated that this RN needed to reevaluate him now because he's not fine and he needs a shot not a pill. Patient has been ambulating around the unit throughout this shift, not showing signs of withdrawing.
[2020-06-28 03:57] VITALS: BP 126/96; PULSE 109; RESP 20; TEMP 36.6; O2SAT 97
[2020-06-28] MEDS: chlordiazePOXIDE 10 mg Capsule 30 MG PO (04:46)
[2020-06-28] MEDS: D5-NS 0.45% + KCL 20 mEq 20 MEQ/1,000 ML BAG 75 MEQ IV (04:46)
--- NOTE | 2020-06-28 07:08 | PC.NURSE ---
Patient irritable pacing up to nurses station and back to room, patient is refusing telemetry and IV fluids, per nursing report patient had 16mg of ativan throughout HS shift, Dr. Hawk notified, new orders received for haldol, patient refused when nurse brought into room stating, I googled it and it's used for psychiatric issues. I deadly afraid of it. Physician notified and reports coming to see patient.
[2020-06-28] MEDS: thiamine 100 mg Tablet PO (08:12)
[2020-06-28] MEDS: pantoprazole DR 40 mg Tablet PO ×2 (08:12→17:30)
[2020-06-28] MEDS: folic acid 1 mg Tablet PO (08:12)
[2020-06-28] MEDS: multivitamin therapeutic Tablet 1 TAB PO (08:12)
--- NOTE | 2020-06-28 08:12 | PC.NURSE ---
Dr. Hawk in to see patient, new orders received for ativan 2mg IV push now and psychiatrist consultation. see MAR for further details.
[2020-06-28 08:30] VITALS: BP 125/85; PULSE 130; RESP 16; TEMP 36.6; O2SAT 97
--- NOTE | 2020-06-28 09:21 | PC.NURSE ---
Patient resting in bed, IV fluids found disconnected and infusing on floor, when discussed with patient, refused to keep IV fluids connected.Patient is also refusing telemetry and SCD's. Dr. Hawk notified and aware.
--- NOTE | 2020-06-28 09:35 | PC.NURSE ---
Dr. Hawk new order for ativan IVP 2mg, see MAR administration for further details, patient is sitting on side of the bed but intermittently paces room and hallway, states, i just want to see the psychiatrist.
--- NOTE | 2020-06-28 10:07 | P.PN_ITS ---
Subjective Subjective: Interval history: Warner reports that he is very nervous today. He would like some Ativan to calm his nerves. He received quite a bit last night. He reports he is nervous at home as well frequently and drinks to help calm his nerves. He is willing to see psychiatry. He does not want to resume drinking. He reports he has claustrophobia as well. Medications: Reviewed: Yes Vitals/I&O/Wt Last Vital Signs Temp 97.8 F 06/28/20 08:30 Pulse 130 H 06/28/20 08:30 Resp 16 06/28/20 08:30 BP 125/85 06/28/20 08:30 Pulse Ox 97 06/28/20 08:30 06/27/20 06/28/20 06/28/20 22:59 06:59 14:59 Intake Total 240 / 1651.560 842.5 / 2494.060 529.75 / 529.75 Balance 240 / 1101.560 842.5 / 1944.060 529.75 / 529.75 Weight last 48 hrs Weight 91.989 kg Weight 94.376 kg Physical Exam Narrative: EXAM NARRATIVE: General exam awake alert and can respond calmly du ring a conversation. When not talking with the patient, he wants to get up and move, pacing. Minimal tremor. Cardiovascular regular rate and rhythm without murmur Lungs clear no wheezing or crackles Abdomen is soft with positive bowel sounds. Extremities no cyanosis clubbing or edema, cap refill brisk Const: GENERAL APPEARANCE: cooperative and comfortable NUTRITIONAL APPEARANCE: obese OTHER: Data : 06/27/20 03:30 06/27/20 03:25 A&P Assessment and plan (1) Alcohol withdrawal: Improved with still significantly anxious. Continue [facility] protocol Psychiatry consultation. May do better in an environment where he can ambulate more. 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 Lab not repeated today. Status: Acute (5) Tobacco dependency: Nicotine patch Status: Inactive (6) Diarrhea: CT scan abnormal with some thickening of cecum and terminal ileum. Cannot rule out inflammatory bowel disease considering patient's history of diarrhea. Could consider outpatient work-up. Hemoccult is negative. Patient has not had any diarrhea here. No significant abdominal discomfort. Again, recommend follow-up as an outpatient for possible work-up Status: Acute (7) Vomiting: Several streaks of blood noted when patient vomited in the ER. Advance diet Continue Protonix by mouth No recurrence of vomiting while in the hospital. Status: Acute Additional A&P Information Full code SCDs for DVT prophylaxis. Avoid pharmacological anticoagulation secondary to history of some blood streaks in emesis 12/ patient reporting significant anxiety, claustrophobia. May have some residual withdrawal. I have asked psychiatry to see the patient for consideration of continued treatment in the hospital Attestations Medical Necessity Statement*: Needs continued treatment of severe anxiety and panic in the face of alcohol withdrawal Coding Level of Care Code Acute Automobile Bumper Straightener for Chg Fwd Diagnoses Alcohol withdrawal F10.239 Alcoholism F10.20 Hypokalemia E87.6 Transaminitis R74.01 Tobacco dependency F17.200 Diarrhea R19.7 Vomiting R11.10
[2020-06-28] MEDS: chlordiazePOXIDE 25 mg Capsule PO ×3 (10:46→22:51)
--- NOTE | 2020-06-28 10:58 | PC.NURSE ---
Dr. Reed here to see patient.
[2020-06-28 12:30] VITALS: BP 117/88; PULSE 108; RESP 20; TEMP 36.6; O2SAT 96
--- NOTE | 2020-06-28 12:32 | PC.NURSE ---
report given to CSU nurse, transferred to CSU via wheelchair and security.
[2020-06-28 13:04] VITALS: BP 117/88; PULSE 108; RESP 20; TEMP 36.6; O2SAT 96
[2020-06-28] MEDS: hyDROXYzine 25 mg Capsule 50 MG PO ×2 (13:17→19:18)
--- NOTE | 2020-06-28 13:52 | P.HP_ITS ---
Providers/Chief Complaint Admitting Physician: David Hawk MD Primary Care Provider: Edwin Price MD Chief Complaint: Drinking Heavily Recently/Unable to eat/Nausea HPI NPU History of Present Illness Warner Bermudez is a 39 year old male who presented to the emergency department with the following report: Chief Complaint: Alcohol Stated Complaint: Drinking Heavily Recently/Unable to eat/Nausea Time Seen by Provider: 06/25/20 08:01 History of Present Illness: HPI narrative: 39-year-old male comes in complaining of acute nausea and vomiting that has been progressively worsening to the point where he cannot keep down water. He states his he drinks regularly daily throughout the entire day. [facility] he states he did fairly well he continued on outpatient medications until he ran out and then he did not do any follow-up through [facility] as an outpatient so he stopped taking his medication shortly after began drinking again he is been continually escalating his drinking since then. Initially tells me is not vomited any blood or passing blood in the stool or had any melenic stools but after he left the room he reports having had some hematemesis. 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 [facility] of those issues. After few days of treatment and nearing medical clearance a psychiatric consult was requested as patient was not being as compliant and worries were raised about his possible suicidality. During that interview he was not very with it he was suggesting that we go for a walk outside while he smoked a cigarette. He was vacillating between being so worried about his children that he had to get home, needing to get back to work and not knowing if he did make it and go on. He acknowledged his tremulousness and need for further detox, his overwhelming anxiety and panic and the high likelihood he would not succeed in his sobriety if he left the right now. He also revealed some passive wish and had presented with suicidal thinking. We reviewed his last inpatient hospitalization and he identified that it was accurate with limited changes. An excerpt is included below. We discussed the risk benefits and alternatives of some different medications and he was resistant to a trial at this time. 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 He is struggling with the separation from his . He has 4 children. He reports that he was doing fine using [facility] and different resources in the community Psychiatric history: He reports that he has had psychiatric hospitalizations in his life the last of which was the end of last year which marked the beginning of some sobriety as he went to [facility]. He has followed at [facility] off and on for many years with his last visit with a psychiatrist being in July of this year. Additionally he reports being on different medications but that he did not like the way they made him feel. He endorsed Klonopin being the most effective medication for him. Substance abuse history: He reports that he smokes cigarettes daily, drinks alcohol daily, denies marijuana use or any other illicit drug use. He reports he has been to rehab and has had a DUI. Per his last inpatient evaluation at [facility] [place]: History of Present Illness Date of Service: May 27, 2019 Chief Complaint: I was doing really fine as long as I was taking my Klonopin. HPI: History of present illness: Warner Bermudez is a 38-year-old man with no prior psychiatric history who came into the emergency room because he had exhausted all of his coping skills and was to a point where he was afraid he might harm himself. He had been having intrusive thoughts of ending his life. They are becoming increasingly vivid and intense. He is under considerable psychosocial stress at this time and that resulted in his necessity of presenting to the hospital. Patient states that his left him 3 weeks ago. He began having problems with insomnia. Historically he has struggled with anxiety which has been successfully treated in the past with benzodiazepines. However he does not like taking pills. Unfortunately, he chose to replace the pills with alcohol. He says that he has been drinking about a 12 pack of beer per day for the past several weeks. Today on interview he denies symptoms or signs of alcohol withdrawal. However he does appear miserable. He is requesting some sort of relief from these intrusive thoughts of self-harm. He does not want to end his own life. He has considered stabbing himself with a industrial photographer knife. However he has not been required to engage coping skills to prevent himself from doing that. He denies the presence of auditory or visual hallucinations. He confirms the presence of feelings of hopelessness, worthlessness, irritability, insomnia, poor energy, and a persistent sadness. He states that he does not typically drink to excess. However he has been drinking more just to cope with the absence of the clonazepam. He does not have a history of alcohol or substance abuse. He has never been in a rehabilitation program for alcohol or substance use. He does have a history of being prescribed antidepressants for a complaint of chronic anxiety. He has difficulty explaining what he means by anxiety. However he has not tolerated antidepressant treatment. He describes events following the initiation of Effexor and then Prozac of what appear to be hypomanic symptoms. His anxiety becomes intolerable. He has racing thoughts. He has difficulty sleeping. He denies a history of impulsivity. He has not taken them for very long because he cannot tolerate those medications and the side effects. Is no family history of bipolar disorder. Mental health history: This is his first psychiatric hospitalization. He has never been in rehabilitation treatment for alcohol or substance use. He has never made a suicide attempt. He has been treated on multiple occasions with medications for anxiety. He was being treated [facility] in December 2018 with presumptive diagnosis of panic disorder and generalized anxiety disorder. Social history: He is currently unemployed. His left him 3 weeks ago. Legal history: His only criminal activity on record is driving without car insurance in 2017. Past medical history: See the emergency room nursing notes records. Mental Status Exam: Patient is a tearful emotionally distraught male appearing approximately his stated eye contact is fleeting. There are no tremors. There is no attention to internal stimuli. He is believed to be a reliable informant for the best of his ability as information provided is internally consistent and consistent with that in the chart. Appearance: hygiene is fair; no gross neurological deficits., gait is unremarkable; AIMS=0 Speech: Speech is of normal rate and rhythm and easily understood. Thought processes: Thought processes are abstract. Judgment is not adequate for safety. Associations: intact Psychotic processes: There is no indication of guarding or paranoia. There is no attention to the internal stimuli. Auditory and visual hallucinations are denied. Judgment: Insight is fair. Problem solving skills are adequate for safety. Orientation: The patient is oriented to person, place time and situation. Memory: no deficits noted in immediate, intermediate, or remote spheres. Attention: The patient is alert and interpersonally engaged. Language: Verbalizations are coherent. Fund of knowledge: Fund of knowledge is adequate. Affect/Mood: Affect is consistent with a depressed mood. Passive suicidal ideation. Affective range constricted Psychosis: perception unimpaired except through cognitive distortion; reality testing intact. Diagnoses: Major depression?single episode, severe, without psychotic features Meds NPU Home Medications Medication Instructions Recorded Confirmed Last Taken Type No Known Home Medications 06/25/20 06/25/20 Unknown History Allergies Allergy/AdvReac Type Severity Reaction Status Date / Time almond Allergy Unknown Verified 08/16/19 10:37 walnut Allergy Unknown Verified 08/16/19 10:37 PFS NPU PFSH: Medical History (Updated 06/25/20 @ 12:52 by Uriah Patel DO) Alcoholism Depression with anxiety History of drug use Tobacco dependency Family History Other Cancer Social History Smoking and tobacco status: current every day smoker cigarettes Years cigarettes smoked: 23 Quit status (tobacco): quit date established Second hand smoke exposure: No Smoking risk assessment/counseling performed?: Yes Tobacco counseling given: counseling >3 minutes Mental Status Exam MSE Comments: This is a overweight versus obese white male with adequate dress grooming and eye contact. No abnormal movements except for psychomotor retardation some mild ataxia and tremulousness. Semicooperative with exam in mild to moderate distress. Speech was decreased rate and volume. Mood described as depressed affect congruent. Thought process organized. Thought content: Patient was unclear about his suicidality, he denied homicidal thoughts. There is some passive wish endorsed. There were no delusions reported or noted, he denied any auditory or visual hallucinations. Attention and concentration are impaired and memory is unreliable but none were formally tested. He is alert and oriented times person and place. Insight and judgment impaired, impulse control is impaired. Vitals/I&O/Wt Last Vital Signs Temp 97.8 F 06/28/20 13:04 Pulse 108 H 06/28/20 13:04 Resp 20 H 06/28/20 13:04 BP 117/88 06/28/20 13:04 Pulse Ox 96 06/28/20 13:04 06/27/20 06/28/20 06/28/20 22:59 06:59 14:59 Intake Total 240 / 1651.560 842.5 / 2494.060 529.75 / 529.75 Balance 240 / 1101.560 842.5 / 1944.060 529.75 / 529.75 Weight last 48 hrs Weight 91.989 kg Weight 94.376 kg Data NPU : 06/27/20 03:30 06/27/20 03:25 A&P Assessment and plan (1) Vomiting: Status: Acute (2) Diarrhea: Status: Acute (3) Transaminitis: Status: Acute (4) Hypokalemia: Status: Acute (5) Alcohol withdrawal: Status: Acute (6) Alcoholism: Status: Acute Additional A&P Information This is a 39-year-old white male with alcohol use disorder, anxiety and depression who presents with recent active addiction after some sobriety who presents with continuing withdrawal who is fairly ambivalent about staying, but reporting he wants to do what is best. 1. Agree with admission to the neuropsychiatric unit. 2. Continue current medication. Will continue to offer medications for his depression and anxiety that are not habit forming. 3. Continue every 15 minute checks for safety. 4. Continue CIWA protocol as well as liberal use of benzodiazepines to combat his withdrawal. 5. Encourage individual, group and milieu therapy. 6. Encourage sober living follow-up at the highest level of care to which he is willing to commit. Involuntary Hold Information 96 Hour Hold: 96 Hour Involuntary Admission: No Attestations NPU Medical Necessity Statement*: Inpatient hospitalization is medically necessary and the clinically appropriate intervention at this time. We will monitor medications and make changes as indicated. He will be in the hospital for over 2 midnights. Likely length of stay 2 to 4 days. Coding Level of Care Code Acute Solvent Plant Operator for Chg Fwd Diagnoses Vomiting R11.10 Diarrhea R19.7 Transaminitis R74.01 Hypokalemia E87.6 Alcohol withdrawal F10.239 Alcoholism F10.20
[2020-06-28] MEDS: haloperidol 5 mg Tablet PO (15:01)
--- NOTE | 2020-06-28 15:05 | PC.NURSE ---
PRN HALDOL Patient given 5mg PO Haldol per direct order from Dr. Reed as patient repeatedly coming to nurse's station asking for Ativan continuously. Patient informed it was not time yet for more Ativan or Librium. Patient became very upset and very hostile about not getting the medication he wanted. Patient requesting to be transferred back to med/surg to get the meds he needs . Dr. Reed spoke with patient, attempt to calm and explain procedures. Patient agreed to take 5mg PO Haldol. Will monitor for effectiveness.
--- NOTE | 2020-06-28 19:18 | PC.NURSE ---
CIWA 20 Pt is sweating, reports bugs crawling on skin, mildly diaphoretic, and irritable. Reports mild nausea, increased agitation, and apologetic. Pt is having a hard time standing up and visibly trembling. Med nurse notified and RN STAFFING recorded blood pressure of 157/110. It is too soon for Ativan per protocol and patient is to receive Visteril.He returned to bed.
--- NOTE | 2020-06-28 19:19 | PC.NURSE ---
PRN VISTARIL ADMINISTERED VISTARIL 50MG DUE TO INCREASING ANXIETY. WILL MONITOR FOR MEDICATION EFFECTIVENESS.
--- NOTE | 2020-06-28 19:54 | PC.NURSE ---
Behavior Pt received Visteril at 1918. He could barely hold his head up on administration. However, came to the nurses desk just now requesting water, gait is normal, and he is smiling. This patient seems to like medications. He went to the dayroom after acting like he was so sick he could not hold his head up on initial assessment at 1900. Requesting to be woke up when he can have additional Ativan. Will continue to monitor and assess patient for true symptoms of withdrawl. Pt BAL on admission is 60.
[2020-06-28 20:09] VITALS: BP 157/110; PULSE 111; RESP 19; TEMP 36.9; O2SAT 96
--- NOTE | 2020-06-28 20:09 | PC.NURSE ---
CIWA 9 Pt is much improved since the administration of Visteril. He is interacting with others, been to the dayroom, is able to bend without falling. He reports less symptoms but still requests to be woke up for medication and specifically asked for Ativan.
--- NOTE | 2020-06-28 20:54 | PC.NURSE ---
Angry Pt came to the window requesting a schedule of available medications for withdrawl. We explained that he may not need these medications or score high enough to receive them he walked away from the window. He returned to the window and became upset. He spoke forcefully to staff about not being gauged by the outside appearance. He would tell US what he felt. He banged his fists on the counter and walked away. He returned a moment later, after pacing the hallway, to say he was sorry, but no one knows what is happening inside someone else, look at the happiest jessie in the world, Ponce Reed, No one knew he was suicidal He is returning to his room, visibly upset.
--- NOTE | 2020-06-28 21:11 | PC.NURSE ---
CIWA 10 Pt is symptomatic of withdrawl. Mild headache, sensitive to light, mildy anxious. BP 146/100 Pr 102 RR 18 O2 is 95% on RA. Med nurse notified. Will continue to monitor patient.
--- NOTE | 2020-06-28 21:18 | PC.NURSE ---
PRN Ativan 2mg Po given for withdrawl symptoms Ciwa 10. BP 146/100, pr 102, RR 18, Spo2 98% on RA. Will continue to monitor pt.
--- NOTE | 2020-06-28 22:52 | PC.NURSE ---
Addendum entered by Federica Smith RN 06/28/20 23:19: Pt is still having symptoms of withdrawl stating he is still anxious. Original Note: Ciwa 6/PRN Librium Librium 25 mg PO given for withdrawl symptoms. Will continue to monitor
[2020-06-28] MEDS: OLANZapine 5 mg ODT PO (23:13)
[2020-06-28] MEDS: trazodone 50 mg Tablet PO (23:13)
--- NOTE | 2020-06-28 23:17 | PC.NURSE ---
Addendum entered by Federica Smith RN 06/29/20 01:00: Pt is sleeping in his room without any apparent s/s of anxiety of agitation at this time. Will continue to monitor patient with regard to withdrawl s/s he has been exhibiting all evening. Original Note: Trazodone/Zyprexa Zydis Trazodone 50mg po given to help pt sleep Zyprexa Zydis 5mg PO given for anxiety and agitation. Will continue to monitor pt
[2020-06-29 06:00] VITALS: RESP 15
[2020-06-29] MEDS: hyDROXYzine 25 mg Capsule 50 MG PO (07:41)
--- NOTE | 2020-06-29 07:48 | PC.NURSE ---
Addendum entered by Yanelis Vincent RN 06/29/20 10:12: Patient has been asleep in bed since administration. Original Note: Request of Medications & PRN Vistaril Patient at nurse's station, eyes closed, slight slurring of speech, appearing very sleepy and tired still. Patient requesting the medication that starts with an A . When asked why he needed this medication, patient stated he woke up anxious and needed something. Patient informed this medication is prescribed as needed for symptoms of withdrawal and prevention of seizures. Patient informed this medication is not needed at this time. Patient offered PRN Vistaril for anxiety. Patient became very upset stating he needed the Ativan or Baclofen. Though patient continued to be upset and angry, he agreed to take 50mg PO Vistaril. Patient then refused to take all other scheduled medications for this AM including Folic Acid, Vitamins, and Protonix. Patient educated on need for these medications. Will make physician aware.
[2020-06-29] MEDS: chlordiazePOXIDE 25 mg Capsule PO (10:10)
--- NOTE | 2020-06-29 10:14 | PC.NURSE ---
PRN Librium Patient at nurse's station again requesting something for anxiety. States he wants Ativan. CIWA revealed score of 0. Patient informed he does not qualify for Ativan at this time. Patient has been sleeping in bed since given Vistaril for anxiety. Patient states he still needs something. Patient is red in face, seeming to get angry, escalating. Librium 25mg PO given. Will monitor for effectiveness.
--- NOTE | 2020-06-29 11:05 | PM.NDC ---
Diagnoses at Discharge Discharge Diagnosis (1) Alcohol withdrawal: Status: Acute (2) Hypokalemia: Status: Acute (3) Diarrhea: Status: Acute (4) Anxiety: Status: Acute Reason for Visit Reason for Visit: Drinking Heavily Recently/Unable to eat/Nausea Brief History: History of Present Illness Warner Bermudez is a 39 year old male who presented to the emergency department with the following report: Chief Complaint: Alcohol Stated Complaint: Drinking Heavily Recently/Unable to eat/Nausea Time Seen by Provider: 06/25/20 08:01 History of Present Illness: HPI narrative: 39-year-old male comes in complaining of acute nausea and vomiting that has been progressively worsening to the point where he cannot keep down water. He states his he drinks regularly daily throughout the entire day. Earlier this year he was involved in an inpatient rehab program after he was discharged he states he did fairly well he continued on outpatient medications until he ran out and then he did not do any follow-up through [facility] as an outpatient so he stopped taking his medication shortly after began drinking again he is been continually escalating his drinking since then. Initially tells me is not vomited any blood or passing blood in the stool or had any melenic stools but after he left the room he reports having had some hematemesis. 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 He was admitted to the Medr unit for the definitive treatment of those issues. After few days of treatment and nearing medical clearance a psychiatric consult was requested as patient was not being as compliant and worries were raised about his possible suicidality. During that interview he was not very with it he was suggesting that we go for a walk outside while he smoked a cigarette. He was vacillating between being so worried about his children that he had to get home, needing to get back to work and not knowing if he did make it and go on. He acknowledged his tremulousness and need for further detox, his overwhelming anxiety and panic and the high likelihood he would not succeed in his sobriety if he left the right now. He also revealed some passive wish and had presented with suicidal thinking. We reviewed his last inpatient hospitalization and he identified that it was accurate with limited changes. An excerpt is included below. We discussed the risk benefits and alternatives of some different medications and he was resistant to a trial at this time. 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 He is struggling with the separation from his . He has 4 children. He reports that he was doing fine using [facility] and different resources in the community Psychiatric history: He reports that he has had psychiatric hospitalizations in his life the last of which was the end of last year which marked the beginning of some sobriety as he went to [facility]. He has followed at [facility] off and on for many years with his last visit with a psychiatrist being in July of this year. Additionally he reports being on different medications but that he did not like the way they made him feel. He endorsed Klonopin being the most effective medication for him. Substance abuse history: He reports that he smokes cigarettes daily, drinks alcohol daily, denies marijuana use or any other illicit drug use. He reports he has been to rehab and has had a DUI. Per his last inpatient evaluation at [facility]: History of Present Illness Date of Service: May 27, 2019 Chief Complaint: I was doing really fine as long as I was taking my Klonopin. HPI: History of present illness: Warner Bermudez is a 38-year-old man with no prior psychiatric history who came into the emergency room because he had exhausted all of his coping skills and was to a point where he was afraid he might harm himself. He had been having intrusive thoughts of ending his life. They are becoming increasingly vivid and intense. He is under considerable psychosocial stress at this time and that resulted in his necessity of presenting to the hospital. Patient states that his left him 3 weeks ago. He began having problems with insomnia. Historically he has struggled with anxiety which has been successfully treated in the past with benzodiazepines. However he does not like taking pills. Unfortunately, he chose to replace the pills with alcohol. He says that he has been drinking about a 12 pack of beer per day for the past several weeks. Today on interview he denies symptoms or signs of alcohol withdrawal. However he does appear miserable. He is requesting some sort of relief from these intrusive thoughts of self-harm. He does not want to end his own life. He has considered stabbing himself with a fiber drier operator knife. However he has not been required to engage coping skills to prevent himself from doing that. He denies the presence of auditory or visual hallucinations. He confirms the presence of feelings of hopelessness, worthlessness, irritability, insomnia, poor energy, and a persistent sadness. He states that he does not typically drink to excess. However he has been drinking more just to cope with the absence of the clonazepam. He does not have a history of alcohol or substance abuse. He has never been in a rehabilitation program for alcohol or substance use. He does have a history of being prescribed antidepressants for a complaint of chronic anxiety. He has difficulty explaining what he means by anxiety. However he has not tolerated antidepressant treatment. He describes events following the initiation of Effexor and then Prozac of what appear to be hypomanic symptoms. His anxiety becomes intolerable. He has racing thoughts. He has difficulty sleeping. He denies a history of impulsivity. He has not taken them for very long because he cannot tolerate those medications and the side effects. Is no family history of bipolar disorder. Mental health history: This is his first psychiatric hospitalization. He has never been in rehabilitation treatment for alcohol or substance use. He has never made a suicide attempt. He has been treated on multiple occasions with medications for anxiety. He was being treated [facility] in December 2018 with presumptive diagnosis of panic disorder and generalized anxiety disorder. Social history: He is currently unemployed. His left him 3 weeks ago. Legal history: His only criminal activity on record is driving without car insurance in 2017. Past medical history: See the emergency room nursing notes records. Mental Status Exam: Patient is a tearful emotionally distraught male appearing approximately his stated eye contact is fleeting. There are no tremors. There is no attention to internal stimuli. He is believed to be a reliable informant for the best of his ability as information provided is internally consistent and consistent with that in the chart. Appearance: hygiene is fair; no gross neurological deficits., gait is unremarkable; AIMS=0 Speech: Speech is of normal rate and rhythm and easily understood. Thought processes: Thought processes are abstract. Judgment is not adequate for safety. Associations: intact Psychotic processes: There is no indication of guarding or paranoia. There is no attention to the internal stimuli. Auditory and visual hallucinations are denied. Judgment: Insight is fair. Problem solving skills are adequate for safety. Orientation: The patient is oriented to person, place time and situation. Memory: no deficits noted in immediate, intermediate, or remote spheres. Attention: The patient is alert and interpersonally engaged. Language: Verbalizations are coherent. Fund of knowledge: Fund of knowledge is adequate. Affect/Mood: Affect is consistent with a depressed mood. Passive suicidal ideation. Affective range constricted Psychosis: perception unimpaired except through cognitive distortion; reality testing intact. Diagnoses: Major depression?single episode, severe, without psychotic features Hospital Course Hospital Course To present to the emergency department with intoxication and having GI complaints. He was admitted to the ICU for definitive treatment of those issues. During his time in the ICU there are concerns about suicidality so a psychiatric consult was undertaken. He was ultimately transferred to the neuropsychiatric unit for definitive treatment of those issues. On the unit he slowly acclimated to the individual, group and milieu therapies provided. He was not interested in ongoing treatment, he was not interested in medication or anything else for that matter. He was able to contract for safety. During the hospitalization, he had routine laboratory studies which were within normal limits except for a few outliers. Also he had a general medical evaluation which was also within normal limits and revealed no new processes outside of those were managed by the ICU and hospitalist. Discharge summary: At the time of discharge, he was asked to lethality and psychosis. His mood and anxiety were well managed. He endorsed the plan to avoid all drugs of abuse but was not interested in the recommendations from the treatment team. He was evaluated and deemed to be absent credible lethality, and was not interested in treatment for allow to discharge. Involuntary Hold Information 96 Hour Hold: 96 Hour Involuntary Admission: No Mental Status Exam MSE Comments: This is a overweight versus obese white male with adequate dress grooming and eye contact. No abnormal movements except for psychomotor retardation some mild ataxia and tremulousness. Semicooperative with exam in mild to moderate distress. Speech was decreased rate and volume. Mood described as depressed affect congruent. Thought process organized. Thought content: Patient denies suicidal or homicidal ideation. There were no delusions reported or noted, he denied any auditory or visual hallucinations. Attention and concentration are improved and memory is unreliable but none were formally tested. He is alert and oriented times 3. Insight and judgment improving, impulse control is impaired. Discharge Data Data Completed and Pending: Completed Studies During Hospitalization Category Date Time Status CT abdomen pelvis w con* [id number] Stat Cat Scan 06/25/20 08:43 Com[place] liver [address] St at Ultrasound 06/25/20 08:33 Completed Vitals: Last Vital Signs Temp 98.3 F 06/29/20 12:13 Pulse 125 H 06/29/20 12:13 Resp 16 06/29/20 12:13 BP 133/92 06/29/20 12:13 Pulse Ox 92 06/29/20 12:13 Discharge Plan Discharge Patient Disposition: Left Against Medical Advice Condition: Stable Prescriptions: No Action No Known Home Medications RF: 0 Referrals: [facility] [Outside] (if interested, [facility] medication management and individual therapy. ) [facility] [Outside] (if interested, [facility] provides substance abuse treatment. ) Edwin Price MD [Primary Care Provider] - Discharge Diet: Regular Discharge Activity: Resume usual activity Discharge Attestations NPU Time Spent in Discharge Care*: less than 30 min Specific Discharge Activities: Specific discharge activities: educating patient, discussing with correctional case manager/social workers/dc planners, documenting/other paperwork and evaluating patient/reviewing data Coding Level of Care Code Acute Training Program Assistant for Chg Fwd Diagnoses Alcohol withdrawal F10.239 Hypokalemia E87.6 Diarrhea R19.7 Anxiety F41.9
--- NOTE | 2020-06-29 11:20 | P.PN_ITS ---
Subjective Subjective: Interval history: This is a 39-year-old male with history of alcohol abuse who presented to the emergency room with complaints of of drinking heavily and unable to eat and nausea. The patient was admitted for alcohol abuse abnormal labs including transaminitis as well as hypokalemia as well as some diarrhea. He had a CT scan which showed some thickening of the cecum and terminal ileum. The patient was noted to be anxious yesterday. The patient has been transferred to the psychiatry floor. He has been evaluated by psychiatrist. He does have some tremors. Hydroxyzine and Ativan have been ordered. He is on CILA protocol. Medications: Reviewed: Yes Vitals/I&O/Wt Last Vital Signs Temp 98.4 F 06/28/20 20:09 Pulse 111 H 06/28/20 20:09 Resp 15 06/29/20 06:00 BP 157/110 06/28/20 20:09 Pulse Ox 96 06/28/20 20:09 Weight last 48 hrs Weight 202 lb 12.8 oz Physical Exam Const: ORIENTATION/CONSCIOUSNESS: Yes oriented to person and Yes oriented to place OTHER: Lethargic arousable answering questions properly Neck/C-Spine: COMMON NORMALS: no JVD Resp: COMMON NORMALS: normal respiratory effort, No retractions and No use of accessory muscles Cardio: COMMON NORMALS: no JVD, regular rate and regular rhythm RATE: regular rate RHYTHM: regular rhythm GI: COMMON NORMALS: Normal to inspection, nondistended, normoactive bowel sounds present and Soft to palpation PALPATION: Yes Soft to palpation Extremity: COMMON NORMALS: normal to inspection and full ROM Neuro: SENSORIUM/ORIENTATION: Yes alert, Yes oriented to person, Yes oriented to place and Yes other (tremor) Psych: OTHER: anxious Skin: COMMON NORMALS: no rashes or lesions noted and no wounds GENERAL SKIN EXAM: no rashes or lesions noted Data : 06/27/20 03:30 06/27/20 03:25 A&P Assessment and plan (1) Alcohol withdrawal: Status: Acute (2) Hypokalemia: Status: Acute (3) Diarrhea: Status: Acute (4) Anxiety: Status: Acute Additional A&P Information 1. Resting tremor noted resting tremor continue CIWA protocol anxiety managed per psychiatry likely plan for outpatient rehab 2. Electrolytes okay 3. abnormal CT abdomen will need outpatient work-up for IBD 4. Okay to discharge from medical standpoint Attestations Medical Necessity Statement*: Warner Bermudez's hospital stay will require greater than 2 midnights for withdrawal Coding Level of Care Code Acute Can Filling Room Sweeper for Chg Fwd Diagnoses Alcohol withdrawal F10.239 Hypokalemia E87.6 Diarrhea R19.7 Anxiety F41.9
[2020-06-29 12:13] VITALS: BP 133/92; PULSE 125; RESP 16; TEMP 36.8; O2SAT 92
--- NOTE | 2020-06-29 12:19 | PC.NURSE ---
PT request to leave AMA as a voluntary patient: Client has completed the necessarry AMA paperwork and risk assessment prior to being discharged AMA. Dr. Reed is aware discharge orders in the computer.
== END 2020-06-29 12:22 | disposition left against medical advice (07) | DRG 894 ==
LOC: ER 13:37 → ICU 15:41 → MEDSURG 06-27 16:37 → NP 06-28 12:28
PROVIDERS: Admitting Provider Internal Medicine; Emergency Provider Family Medicine; PCP Family Medicine; Visit Provider Internal Medicine
DX: F10.229 Alcohol dependence with intoxication, unspecified (principal); F10.239 Alcohol dependence with withdrawal, unspecified; K70.10 Alcoholic hepatitis without ascites; Z53.29 Procedure and treatment not carried out because of patient's decision for other reasons; F41.8 Other specified anxiety disorders; F17.210 Nicotine dependence, cigarettes, uncomplicated; I10 Essential (primary) hypertension; E87.6 Hypokalemia; R19.7 Diarrhea, unspecified; R11.2 Nausea with vomiting, unspecified; G47.00 Insomnia, unspecified; F40.240 Claustrophobia
CPT/HCPCS: 12345; 36415; 74177; 76705; 80053; 80307; 81001; 82274; 83605; 83690; 83735; 84443; 85025; 85610; 85730; 87040; 93005; 96372; 96375; 99283; C9113; J2060; J2405; J2550; J3411; J3480; J3490; J7030; J7040; Q9967

== ENCOUNTER 2020-08-26 09:57 | Emergency (ER) | payer SELFPAY ==
[2020-08-26 10:03] VITALS: BP 153/110; PULSE 111; RESP 16; TEMP 36.8; O2SAT 96; BMI 30.1
--- NOTE | 2020-08-26 10:23 | W.ED.MEDCLER ---
HPI - Medical Clearance General Chief complaint: Medical Clearance Stated complaint: WANTS DETOX PER [facility] Time Seen by Provider: 08/26/20 10:21 Source: patient Mode of arrival: ambulatory Limitations: no limitations History of Present Illness HPI Narrative: Patient is a 39-year-old male comes to the ED wanting to detox from alcohol. Patient is scheduled to go to [facility] on [facility]. He reports drinking 3 pints of whiskey a day and his last drink was approximately 7 AM this morning. Patient has been to rehab in the past for drugs and alcohol. Patient says he started drinking again after detox back in October 2019 and his drinking will continue to progress. He denies any past seizures during detox. Patient says he is not eaten much over the past 5 days. Denies any recent blackout, falls or head trauma. He does report feeling very anxious today. Denies any SI, HI, auditory or visual hallucinations. Traumatic Symptoms: denies traumatic injury Associated Symptoms: denies other symptoms Related Information Home Medications Medication Instructions Recorded Confirmed hydroxyzine HCl 50 mg PO TID PRN 08/26/20 08/26/20 Allergies Allergy/AdvReac Type Severity Reaction Status Date / Time almond Allergy Unknown Verified 08/26/20 10:22 walnut Allergy Unknown Verified 08/26/20 10:22 Course Course Patient is scheduled to go into [facility] for alcohol detox on August 28 at 9 AM. Consultations Consultation #1: I contacted Dr. Reed the on-call psych doctor to discuss patient's case and his recommendations. I told him that patient is scheduled to report to [facility] on Wednesday at 9am to start alcohol abuse treatment. He told me if patient is serious about not drinking that he would discharge him with a prescription for librium for every 4 hours until he goes into [facility] on Wednesday. He told me to stress that patient does not drink while taking this medication. Vital Signs Temperature 98.2 F 08/26/20 10:03 Pulse Rate 101 H 08/26/20 14:53 Respiratory Rate 18 08/26/20 14:53 Blood Pressure 137/98 08/26/20 14:53 Pulse Oximetry 96 08/26/20 14:53 MDM - Medical Clearance MDM Narrative Medical decision making narrative: Patient is a 39-year-old male comes to the ED with alcohol intoxication. He is scheduled to go into [facility] on Wednesday at 9 AM to enter treatment for alcohol abuse. Patient is alert and oriented and his last alcoholic beverage was around 7 AM this morning. He feels a little anxious currently but has no other withdrawal symptoms. Denies any auditory or visual hallucinations, SI. He has went through alcohol withdrawal in the past and says he has not had any seizures when dealing with withdrawals. Patient had alcohol level of 314 but the rest of his labs were normal. Patient was given Ativan and a banana bag IV while here in the ED. I contacted Dr. Reed to discuss management of this patient and he recommended to have patient discharged home with a prescription for Librium and for him to not drink any alcohol and reported [facility] at 9 AM on Wednesday. Patient was in a clear state of mind and he agreed to the plan. I discussed with him the importance of not drinking any alcohol while taking the librium every 4 hours to help with any withdrawal symptoms. Patient understood and agreed with plan. Return to ED precautions given. Lab Data Attestation: I reviewed the patient's lab results. Result diagrams: 08/26/20 10:58 08/26/20 10:58 Labs: Lab Results 08/26/20 08/26/20 08/26/20 Range/Units 10:58 10:58 12:50 WBC 9.8 (4.0-10.0) 10^3/uL RBC 5.53 H (4.1-5.3) 10^6/uL Hgb 17.6 H (11.7-16.6) g/dL Hct 49.0 (42.0-52.0) % MCV 88.6 (80-94) fL MCH 31.8 (28.0-34.0) pg MCHC 35.9 (30.0-36.0) g/dL RDW 13.7 (12.1-15.1) % Plt Count 206 (130-400) 10^3/cmm MPV 10.0 (7.4-10.4) fL Neut % (Auto) 56.1 % Lymph % (Auto) 33.4 % Evans % (Auto) 8.4 % Eos % (Auto) 1.2 % Baso % (Auto) 0.6 % Neut # (Auto) 5.47 (1.8-7.7) 10^3/uL Lymph # (Auto) 3.3 (0.8-4.8) 10^3/uL Evans # (Auto) 0.8 (0.2-0.9) 10^3/uL Eos # (Auto) 0.1 (0.0-0.8) 10^3/uL Baso # (Auto) 0.1 (0.0-0.1) 10^3/uL Nucleated RBC % (auto) 0 % Nucleated RBCs # 0.0 /100WBC Sodium 141 (136-145) mmol/L Potassium 3.5 (3.5-5.1) mmol/L Chloride 104 (98-107) mmol/L Carbon Dioxide 25 (22-29) mmol/L Anion Gap 15.5 (5-19) BUN 4 L (6-20) mg/dL Creatinine 0.9 (0.7-1.2) mg/dL GFR Calculation 93.9 (90-130) mL/min Glucose 110 (65-115) mg/dL Calculated Osmolality 290 (285-295) mOsm/kg Calcium 8.0 L (8.5-10.5) mg/dL Total Bilirubin 0.7 (0.15-1.2) mg/dL AST 27 (0-40) U/L ALT 27 (0-41) U/L Alkaline Phosphatase 106 (40-130) IU/L Total Protein 6.0 L (6.6-8.7) g/dL Albumin 3.6 (3.5-5.2) g/dL Globulin 2.4 (1.3-4.6) g/dL Urine Color Yellow (Yellow) Urine Appearance Clear (CLEAR) Urine pH 5 (5-7) Ur Specific [place] 1.010 (1.005-1.030) Urine Protein Neg (Negative) Urine Glucose (UA) Norm (Normal) Urine Ketones Negative (Negative) Urine Blood Neg (Negative) Urine Nitrate Negative (Negative) Urine Bilirubin Neg (Negative) Urine Urobilinogen Norm (Negative) mg/dL Ur Leukocyte Esterase Negative (Negative) Urine RBC 0-4 H (0-2) /hpf Urine WBC Rare (0-5) /hpf Ur Squamous Epith Cells 0-4 H (0-5) /hpf Amorphous Sediment 1+ /hpf Urine Bacteria Trace (NONE) /hpf Hyaline Casts 5-10 H /lpf Urine Mucus 1+ /hpf Salicylates < 0.3 L (3-10) mg/dL Urine Opiates Screen (Negative) ng/mL Acetaminophen < 5.0 L (10-30) ug/mL Ur Barbiturates Screen (Negative) ng/mL Ur Phencyclidine Scrn (Negative) ng/mL Ur Amphetamines Screen (Negative) ng/mL U Benzodiazepines Scrn (Negative) ng/mL Urine Cocaine Screen (Negative) ng/mL U Marijuana (THC) Screen (Negative) ng/mL Ethyl Alcohol 314 H* (0-10) mg/dL 08/26/20 Range/Units 12:50 WBC (4.0-10.0) 10^3/uL RBC (4.1-5.3) 10^6/uL Hgb (11.7-16.6) g/dL Hct (42.0-52.0) % MCV (80-94) fL MCH (28.0-34.0) pg MCHC (30.0-36.0) g/dL RDW (12.1-15.1) % Plt Count (130-400) 10^3/cmm MPV (7.4-10.4) fL Neut % (Auto) % Lymph % (Auto) % Evans % (Auto) % Eos % (Auto) % Baso % (Auto) % Neut # (Auto) (1.8-7.7) 10^3/uL Lymph # (Auto) (0.8-4.8) 10^3/uL Evans # (Auto) (0.2-0.9) 10^3/uL Eos # (Auto) (0.0-0.8) 10^3/uL Baso # (Auto) (0.0-0.1) 10^3/uL Nucleated RBC % (auto) % Nucleated RBCs # /100WBC Sodium (136-145) mmol/L Potassium (3.5-5.1) mmol/L Chloride (98-107) mmol/L Carbon Dioxide (22-29) mmol/L Anion Gap (5-19) BUN (6-20) mg/dL Creatinine (0.7-1.2) mg/dL GFR Calculation (90-130) mL/min Glucose (65-115) mg/dL Calculated Osmolality (285-295) mOsm/kg Calcium (8.5-10.5) mg/dL Total Bilirubin (0.15-1.2) mg/dL AST (0-40) U/L ALT (0-41) U/L Alkaline Phosphatase (40-130) IU/L Total Protein (6.6-8.7) g/dL Albumin (3.5-5.2) g/dL Globulin (1.3-4.6) g/dL Urine Color (Yellow) Urine Appearance (CLEAR) Urine pH (5-7) Ur Specific [place] (1.005-1.030) Urine Protein (Negative) Urine Glucose (UA) (Normal) Urine Ketones (Negative) Urine Blood (Negative) Urine Nitrate (Negative) Urine Bilirubin (Negative) Urine Urobilinogen (Negative) mg/dL Ur Leukocyte Esterase (Negative) Urine RBC (0-2) /hpf Urine WBC (0-5) /hpf Ur Squamous Epith Cells (0-5) /hpf Amorphous Sediment /hpf Urine Bacteria (NONE) /hpf Hyaline Casts /lpf Urine Mucus /hpf Salicylates (3-10) mg/dL Urine Opiates Screen Negative (Negative) ng/mL Acetaminophen (10-30) ug/mL Ur Barbiturates Screen Negative (Negative) ng/mL Ur Phencyclidine Scrn Negative (Negative) ng/mL Ur Amphetamines Screen Negative (Negative) ng/mL U Benzodiazepines Scrn Negative (Negative) ng/mL Urine Cocaine Screen Negative (Negative) ng/mL U Marijuana (THC) Screen Negative (Negative) ng/mL Ethyl Alcohol (0-10) mg/dL Discharge Plan Discharge Patient Disposition: Home Clinical Impression: Alcohol abuse Alcohol intoxication Qualifiers: Complication of substance-induced condition: uncomplicated Qualified Code(s): F10.920 - Alcohol use, unspecified with intoxication, uncomplicated Condition: Stable Prescriptions: No Action hydroxyzine HCl 50 mg Tablet 50 mg PO TID PRN (Reason: Anxiety) RF: 0 Discharge Orders: Discharge ED (Routine); Ordered 08/26/20 Ordered By: Polo Chakraborty Referrals: Edwin Price MD [Primary Care Provider] - Discharge Diet: Regular Discharge Activity: Resume usual activity Patient Instructions: Abuse of Alcohol (ED), Alcohol Withdrawal (ED) Activity Restrictions/Additional Instructions: Follow-up with medical provider as directed. Do not drink alcohol and take the prescribed medication 1 tab every 4 hours until you check in with [facility] on Wednesday at 9 AM. Take medications as prescribed. Return to the ER or your medical provider if condition worsens. Please read and understand discharge instructions. If any questions, please ask.
[2020-08-26] MEDS: LORazepam 2 mg/mL INJ 1 mL 1 MG IVP (11:01)
[2020-08-26 11:02] VITALS: BP 151/103; PULSE 106; RESP 18; O2SAT 98
[2020-08-26 11:03] LABS: Basophils # 0.1 10^3/uL (0.0-0.1); Basophils % 0.6 %; Eosinophils # 0.1 10^3/uL (0.0-0.8); Eosinophils % 1.2 %; Hemoglobin 17.6 g/dL (11.7-16.6); Lymphocytes # 3.3 10^3/uL (0.8-4.8); Lymphocytes % 33.4 %; Mean Corpuscular HGB Conc 35.9 g/dL (30.0-36.0); Mean Corpuscular Hemoglobin 31.8 pg (28.0-34.0); Mean Corpuscular Volume 88.6 fL (80-94); Monocytes # 0.8 10^3/uL (0.2-0.9); Monocytes % 8.4 %; Neutrophils # 5.47 10^3/uL (1.8-7.7); Neutrophils % 56.1 %; Nucleated Red Blood Cells % 0 %; Platelet Count 206 10^3/cmm (130-400); Red Blood Count 5.53 10^6/uL (4.1-5.3); Red Cell Distribution Width 13.7 % (12.1-15.1); White Blood Count 9.8 10^3/uL (4.0-10.0)
[2020-08-26] MEDS: folic acid 1 MG, multivitamin inj 10 ML, thiamine 100 MG in sodium chloride 0.9% 1,000 ML 252.8 MG IV (11:10)
[2020-08-26 11:30] VITALS: PULSE 102; RESP 12; O2SAT 98
[2020-08-26 11:44] LABS: Alanine Aminotransferase 27 U/L (0-41); Albumin Level 3.6 g/dL (3.5-5.2); Alkaline Phosphatase 106 IU/L (40-130); Anion Gap 15.5 (5-19); Aspartate Amino Transferase 27 U/L (0-40); Blood Urea Nitrogen 4 mg/dL (6-20); Carbon Dioxide 25 mmol/L (22-29); Chloride 104 mmol/L (98-107); Globulin 2.4 g/dL (1.3-4.6); Glomerular Filtration Rate 93.9 mL/min (90-130); Glucose 110 mg/dL (65-115); Osmolality Calculated 290 mOsm/kg (285-295); Potassium 3.5 mmol/L (3.5-5.1); Sodium 141 mmol/L (136-145); Total Bilirubin 0.7 mg/dL (0.15-1.2)
[2020-08-26 11:46] LABS: Acetaminophen < 5.0 ug/mL (10-30); Salicylate < 0.3 mg/dL (3-10)
[2020-08-26 11:48] LABS: Alcohol Level 314 mg/dL (0-10)
[2020-08-26 12:54] VITALS: BP 122/91; PULSE 106; RESP 18; O2SAT 98
[2020-08-26 13:00] LABS: Bilirubin Urine Neg (Negative); Blood Urine Neg (Negative); Glucose Urine UA Norm (Normal); Ketones Urine Negative (Negative); Leukocyte Esterase Urine Negative (Negative); Nitrate Urine Negative (Negative); Protein Urine Neg (Negative); Urine Appearance Clear (CLEAR); Urine Color Yellow (Yellow); Urobilinogen Urine Norm (Negative); pH Urine 5 (5-7)
[2020-08-26 13:06] LABS: Bacteria Urine TRACE /hpf; Mucus Urine 1+ /hpf; RBC Urine 0-4 /hpf (0-2); Squamous Epithelial Cell Urine 0-4 /hpf (0-5); WBC Urine RARE /hpf (0-5)
[2020-08-26 13:07] LABS: Add Urine Culture? No; Amorphous Sediment Urine 1+ /hpf
[2020-08-26 13:09] LABS: Amphetamines Screen Urine Negative (Negative); Barbiturates Screen Urine Negative (Negative); Benzodiazepines Screen Urine Negative (Negative); Cocaine Screen Urine Negative (Negative); Opiate Screen Urine Negative (Negative); PCP Screen Urine Negative (Negative); THC Screen Urine Negative (Negative)
[2020-08-26] MEDS: LORazepam 2 mg Tablet PO (13:36)
[2020-08-26 14:52] VITALS: BP 137/98; PULSE 101; RESP 17; O2SAT 96
[2020-08-26 14:53] VITALS: BP 137/98; PULSE 101; RESP 18; O2SAT 96
== END 2020-08-26 14:54 | disposition home or self-care (01) ==
PROVIDERS: Emergency Provider Physician Assistant; PCP Family Medicine
DX: F10.120 Alcohol abuse with intoxication, uncomplicated (principal); Y90.8 Blood alcohol level of 240 mg/100 ml or more
CPT/HCPCS: 80053; 80306; 80307; 81001; 85025; 96361; 96374; 99283; J2060; J3411; J3490; J7030

== ENCOUNTER 2022-11-18 10:37 | Emergency (ER) | payer SELFPAY ==
[2022-11-18 11:21] VITALS: BP 134/91; PULSE 109; RESP 16; TEMP 36.8; O2SAT 96
[2022-11-18] MEDS: nicotine 21 mg Patch 1 PATCH TRANSDERMA (11:45)
--- NOTE | 2022-11-18 12:23 | ED_ITS ---
HPI - General Adult General: Chief complaint: Psychiatric Symptoms Stated complaint: MHE Time Seen by Provider: 11/18/22 11:45 Source: patient Mode of arrival: ambulatory Limitations: no limitations History of Present Illness: This patient presents to the emergency department because he wants to initiate cessation of alcohol use. He states he is a daily hard liquor drinker and has been for some time. He states his last drink was this morning. He is motivated because his 14-year-old daughter asked him to stop drinking and therefore he is here to see if he can get assistance in that process. He denies any other street drug use. He states he previously would take pain pills but he has not done that for many years. He absolutely denies any plans or thoughts to harm himself or harm or others. He has 5 children and wants to make sure that he is around to help take care of them. He states he is very anxious since his last drink was several hours ago. He tried to eat something in the emergency department but vomited it but there is no bloody emesis. No black tarry stools etc. He has no known other medical problems. He is a tobacco user. Associated symptoms: Reports nausea and vomiting; Deny chest pain, headache(s), rash, palpitations or syncope Review of Systems Const: Denies: fever(s) or chills Eyes: Denies: change in vision ENMT: Denies: throat pain or odynophagia Card: Denies: chest pain, palpitations, irregular heart rhythm, syncope or pre-syncope GI: Reports: nausea and vomiting; Denies: abdominal pain, diarrhea, hematochezia or melena : Denies: flank pain, difficulty urinating, dysuria or urinary frequency Musc: Denies: neck pain, back pain, extremity pain or extremity swelling Skin/Breast: Denies: rash, pruritus or erythema Neuro: Denies: headache(s), numbness in extremities or weakness in extremities Psych: Reports: anxiety; Denies: visual hallucinations, auditory hallucinations, suicidal ideation or homicidal ideation PFS ED 2 PFSH: Medical History Alcohol dependence in early full remission last use 08/25/20 Alcoholism Depression with anxiety Generalized anxiety disorder History of drug use Tobacco dependency Family History Other Cancer Social History Smoking and tobacco status: current every day smoker cigarettes Packs smoked per day: 0.5 Years cigarettes smoked: 25 Quit status (tobacco): considering quitting Second hand smoke exposure: No Smoking risk assessment/counseling performed?: Yes Tobacco counseling given: counseling >3 minutes Physical Exam Narrative: EXAM NARRATIVE: The patient is somewhat anxious in appearance but is able to engage me in a substantially of conversation which is goal-directed and fluent. Const: COMMON NORMALS: average body habitus, patient oriented x3, healthy appearing and alert GENERAL APPEARANCE: anxious HENMT: COMMON NORMALS: normocephalic, Normal nasal mucous membranes and turbinates present, moist oral mucous membranes and oropharynx normal HEAD & SCALP: normocephalic NOSE: Normal nasal mucous membranes and turbinates present Eye: COMMON NORMALS: Equal, round and reactive pupils present, EOMs intact bilaterally and conjunctivae normal CONJUNCTIVA: Yes conjunctivae normal PUPIL: Yes Equal, round and reactive pupils present Neck/C-Spine: COMMON NORMALS: full ROM, no lymphadenopathy and Thyroid normal THYROID: Thyroid normal Chest: COMMONS NORMALS: normal inspection of the chest and normal palpation of entire chest wall Resp: COMMON NORMALS: normal respiratory effort, No use of accessory muscles and clear to auscultation bilaterally AUSCULTATION: clear to auscultation b ilaterally Cardio: COMMON NORMALS: regular rate, regular rhythm, No murmurs present (Cardio) and Peripheral pulses 2+ throughout RATE: regular rate RHYTHM: regular rhythm PERIPHERAL PULSES: Peripheral pulses 2+ throughout GI: COMMON NORMALS: Normal to inspection, nondistended, normoactive bowel sounds present, Soft to palpation and non-tender PALPATION: Yes Soft to palpation : COMMON NORMALS: Yes no CVA tenderness BLADDER/KIDNEY EXAM: Yes no CVA tenderness Back/Pelvis: COMMON NORMALS: no CVA tenderness, thoracic and lumbar spine normal to inspection, no thoracic nor lumbar tenderness and thoraco-lumbar ROM normal Extremity: COMMON NORMALS: normal to inspection Neuro: COMMON NORMALS: patient oriented x3, moves all extremities, no focal motor deficits and no sensory deficits noted SENSORIUM/ORIENTATION: Yes alert CRANIAL NERVES: Yes CN normal except as noted Psych: COMMON NORMALS: mental status grossly normal and Normal thought process present ACTIVITY/MOTOR BEHAVIOR: Yes appropriate eye contact SPEECH: Yes rapid MOOD & AFFECT: Yes anxious THOUGHT PROCESS: Normal thought process present THOUGHT CONTENT: Yes Normal thought content present ATTENTION/CONCENTRATION: Yes attention grossly intact INSIGHT: Fair insight present (Psych) JUDGEMENT: Fair judgement present (Psych) Skin: COMMON NORMALS: no rashes or lesions noted, no wounds and turgor normal GENERAL SKIN EXAM: no rashes or lesions noted and turgor normal Course Reevaluation(s): Reevaluation #1: Patient is doing well. He is relaxed. Calm. Reviewed his current findings no evidence of significant concern on screening laboratories. Discussed use of Librium over the next week to help control his cravings which he is amenable to. Again no evidence or findings to suggest the patient's at risk for self harm or harm to others and is motivated to cease his drinking habit at this time. He risk of recidivism is unknown. Time: 13:56 Reevaluation #2: Patient continues to do well states he is feeling much better after the doses of Librium. He is ready to be discharged and agreeable to continue course of therapy at home temp to stay on the wagon. He voices understanding of the plan of care and agrees to return if he is unsuccessful or has other concerns or any thoughts of self-harm or harm to others. No prior history of suicidality. Time: 17:11 Vital Signs: Vital signs: Vital Signs Temperature 98.3 F 11/18/22 11:21 Pulse Rate 120 H 11/18/22 14:17 Respiratory Rate 18 11/18/22 14:17 Blood Pressure 126/79 11/18/22 14:17 Pulse Oximetry 99 11/18/22 14:17 Oxygen Delivery Me thod Room Air 11/18/22 14:17 [facility] - General Adult Medical Decision Making Patient with known daily hard liquor use for period of time presented to the emergency department requesting some assistance in attempting to detoxify off his daily alcohol habit. No evidence at this time of suicidality, homicidality or other ongoing unstable mental health condition. Clinical examination revealed typical findings of alcoholism in early detoxification with tachycardia, borderline anxiety and tremor. No other clinical findings of concern including his mental health evaluation. Laboratories are reassuring and that there was no evidence of significant liver dysfunction etc. The patient responded well to hydration, initial Ativan to control symptoms followed by subsequent Librium to help sustain his symptom control. Suitable and stable to continue therapy as an outpatient with return precautions. Lab Data I reviewed the patient's lab results. 11/18/22 12:30 11/18/22 12:30 Laboratory Results WBC 8.8 10^3/uL (4.0-10.0) 11/18/22 12:30 RBC 5.47 10^6/uL (4.1-5.3) H 11/18/22 12:30 Hgb 16.8 g/dL (11.7-16.6) H 11/18/22 12:30 Hct 47.0 % (42.0-52.0) 11/18/22 12: MCV 85.9 fl (80-94) 11/18/22 12: MCH 30.7 pg (28.0-34.0) 11/18/22 12: MCHC 35.7 g/dL (30.0-36.0) 11/18/22 12:30 RDW 13.5 % (12.1-15.1) 11/18/22 12:30 Plt Count 167 10^3/cmm (130-400) 11/18/22 12:30 MPV 10.1 fL (7.4-10.4) 11/18/22 12: Neut % (Auto) 56.1 % 11/18/22 12: Lymph % (Auto) 32.9 % 11/18/22 12:30 Mercer % (Auto) 9.2 % 11/18/22 12: Eos % (Auto) 0.9 % 11/18/22 12: Baso % (Auto) 0.6 % 11/18/22 12:30 Neut # (Auto) 4.93 10^3/uL (1.8-7.7) 11/18/22 12: Lymph # (Auto) 2.9 10^3/uL (0.8-4.8) 11/18/22 12: Mercer # (Auto) 0.8 10^3/uL (0.2-0.9) 11/18/22 12:30 Eos # (Auto) 0.1 10^3/uL (0.0-0.8) 11/18/22 12:30 Baso # (Auto) 0.1 10^3/uL (0.0-0.1) 11/18/22 12:30 Nucleated RBC % (auto) 0 % 11/18/22 12:30 Nucleated RBCs # 0.0 /100WBC 11/18/22 12:30 Sodium 139 mmol/L (136-145) 11/18/22 12:30 Potassium 3.5 mmol/L (3.5-5.1) 11/18/22 12:30 Chloride 101 mmol/L (98-107) 11/18/22 12:30 Carbon Dioxide 22 mmol/L (22-29) 11/18/22 12:30 Anion Gap 19.5 (5-19) H 11/18/22 12:30 BUN 8 mg/dL (6-20) 11/18/22 12:30 Creatinine 1.2 mg/dL (0.7-1.2) 11/18/22 12:30 GFR Calculation 66.4 mL/min (90-130) L 11/18/22 12:30 Glucose 129 mg/dL (65-115) H 11/18/22 12:30 Calculated Osmolality 288 mOsm/kg (285-295) 11/18/22 12:30 Calcium 8.0 mg/dL (8.5-10.5) L 11/18/22 12:30 Total Bilirubin 0.6 mg/dL (0.15-1.2) 11/18/22 12:30 AST 102 U/L (0-40) H 11/18/22 12:30 ALT 78 U/L (0-41) H 11/18/22 12:30 Alkaline Phosphatase 123 U/L (40-130) 11/18/22 12:30 Total Protein 6.3 g/dL (6.6-8.7) L 11/18/22 12:30 Albumin 3.8 g/dL (3.5-5.2) 11/18/22 12:30 Globulin 2.5 g/dL (1.3-4.6) 11/18/22 12:30 Lipase 19 U/L (13-60) 11/18/22 12:30 Discharge Plan Discharge Patient Disposition: Home Clinical Impression: Alcoholism Condition: Stable Prescriptions: New chlordiazepoxide HCl 25 mg capsule 50 mg PO TID Qty: 33 0RF Rx Instructions: 2 caps tid for 3 days, then 1 tid for 3 days, 1 bid for 3 days No Action hydroxyzine HCl 50 mg tablet 50 mg PO TID PRN (Reason: Anxiety) Qty: 90 6RF Rx Instructions: May take one tablet three times per day as needed for anxiety Discharge Orders: Discharge ED (Routine); Ordered 11/18/22 Ordered By: Fransisco Pradhan Referrals: Edwin Price MD [Primary Care Provider] - Discharge Diet: Advance as tolerated Discharge Activity: Increase activity as tolerated Patient Instructions: Opioid Safety, Pain Management Activity Restrictions/Additional Instructions: As we discussed we have provided medicine to help your symptoms so that you are successful in discontinuing your daily alcohol use. We also recommend calling Alcoholics Anonymous at phone #[phone] to discuss local meeting times and dates. If it anytime you are unsuccessful with your withdrawal your symptoms worsen or you have thoughts of harming yourself or others [facility] or call 911 immediately Coding Level of Care Code ED Fusing Machine Feeder for Derek Sabillon
--- NOTE | 2022-11-18 12:33 | PC.NURSE ---
DR. WILKINSON GAVE VERBAL INSTRUCTION TO GIVE PT'S PHONE BACK. PT DENIES SI/HI
[2022-11-18 12:46] LABS: Basophils # 0.1 10^3/uL (0.0-0.1); Basophils % 0.6 %; Eosinophils # 0.1 10^3/uL (0.0-0.8); Eosinophils % 0.9 %; Hemoglobin 16.8 g/dL (11.7-16.6); Lymphocytes # 2.9 10^3/uL (0.8-4.8); Lymphocytes % 32.9 %; Mean Corpuscular HGB Conc 35.7 g/dL (30.0-36.0); Mean Corpuscular Hemoglobin 30.7 pg (28.0-34.0); Mean Corpuscular Volume 85.9 fl (80-94); Mean Platelet Volume 10.1 fL (7.4-10.4); Monocytes # 0.8 10^3/uL (0.2-0.9); Monocytes % 9.2 %; Neutrophils # 4.93 10^3/uL (1.8-7.7); Neutrophils % 56.1 %; Nucleated Red Blood Cells % 0 %; Platelet Count 167 10^3/cmm (130-400); Red Blood Count 5.47 10^6/uL (4.1-5.3); Red Cell Distribution Width 13.5 % (12.1-15.1); White Blood Count 8.8 10^3/uL (4.0-10.0)
[2022-11-18] MEDS: sodium chloride 0.9% 1,000 ML 999 ML IV (12:56)
[2022-11-18] MEDS: LORazepam 2 mg/mL INJ 1 mL IVP (12:56)
[2022-11-18 13:03] LABS: Alanine Aminotransferase 78 U/L (0-41); Albumin Level 3.8 g/dL (3.5-5.2); Alkaline Phosphatase 123 U/L (40-130); Anion Gap 19.5 (5-19); Aspartate Amino Transferase 102 U/L (0-40); Blood Urea Nitrogen 8 mg/dL (6-20); Carbon Dioxide 22 mmol/L (22-29); Chloride 101 mmol/L (98-107); Globulin 2.5 g/dL (1.3-4.6); Glomerular Filtration Rate 66.4 mL/min (90-130); Glucose 129 mg/dL (65-115); Lipase 19 U/L (13-60); Osmolality Calculated 288 mOsm/kg (285-295); Potassium 3.5 mmol/L (3.5-5.1); Sodium 139 mmol/L (136-145); Total Bilirubin 0.6 mg/dL (0.15-1.2); Total Protein 6.3 g/dL (6.6-8.7)
[2022-11-18] MEDS: chlordiazePOXIDE 25 mg Capsule PO (14:13)
[2022-11-18 14:17] VITALS: BP 126/79; PULSE 120; RESP 18; O2SAT 99
[2022-11-18] MEDS: chlordiazePOXIDE 25 mg Capsule 50 MG PO (15:53)
[2022-11-18 17:23] VITALS: BP 126/79; PULSE 120; RESP 18; O2SAT 99
== END 2022-11-18 17:25 | disposition home or self-care (01) ==
PROVIDERS: Emergency Provider Emergency Medicine; PCP Family Medicine
DX: F10.20 Alcohol dependence, uncomplicated (principal); F17.210 Nicotine dependence, cigarettes, uncomplicated
CPT/HCPCS: 36415; 80053; 83690; 85025; 96361; 96374; 99284; J2060; J7030

== ENCOUNTER 2023-08-10 15:55 | Emergency (ER) | payer SELFPAY ==
[2023-08-10 15:59] VITALS: BP 166/135; PULSE 126; RESP 16; TEMP 36.8; O2SAT 95; BMI 32.5
--- NOTE | 2023-08-10 16:20 | ED_ITS ---
HPI - Alcohol 2 General: Chief Complaint: Psychiatric Symptoms Stated Complaint: pt says he needs to detox, alch Time Seen by Provider: 08/10/23 16:10 Source: patient Mode of arrival: ambulatory Limitations: no limitations History of Present Illness: Patient is a 42-year-old male with a history of chronic alcohol use here with a history of heavy drinking over the past 2 weeks and a desire to quit. Patient does not wish hospitalization at this time. He has tried previous rehabilitation centers but do not feel they are overly helpful. Patient reports he is motivated to quit drinking at home. His last drink was earlier this morning. He has had a total of 8 shooters already today. Patient states he has never had an alcohol withdrawal seizure. He is not suicidal or homicidal. MD complaint: alcohol withdrawal and alcohol dependence Chronic alcohol use: Yes Previous visits for alcohol intoxication: Yes Recent trauma: No Associated symptoms: Reports nausea; Deny abdominal pain, suicidal ideation or vomiting Treatments prior to arrival: none Review of Systems 2 Const: Denies: fever(s), chills, body aches, fatigue or malaise Eyes: Denies: change in vision, blurry vision, photophobia, floaters or seeing flashes Card: Denies: chest pain Resp: Denies: dyspnea GI: Reports: nausea; Denies: abdominal pain, vomiting or diarrhea Musc: Denies: neck pain, back pain, extremity pain or joint pain Skin/Breast: Denies: rash Neuro: Denies: headache(s), numbness in extremities, weakness in extremities, sensory changes or dizziness Psych: Denies: visual hallucinations, auditory hallucinations, suicidal ideation or homicidal ideation PFSH ED 2 PFSH: Medical History Cigarette nicotine dependence Chronic post-traumatic stress disorder Alcohol dependence with alcohol-induced mood disorder Psychiatric care Generalized anxiety disorder Family History Other Cancer Social History Smoking and tobacco/nicotine status: current every day tobacco/nicotine user cigarettes Packs smoked per day: 0.5 Years cigarettes smoked: 25 Quit status (tobacco/nicotine): considering quitting Second hand smoke exposure: No Physical Exam 2 Const: COMMON NORMALS: no acute distress, average body habitus, patient oriented x3, no limitations, healthy appearing, alert and well nourished Eye: COMMON NORMALS: no scleral icterus Resp: COMMON NORMALS: normal respiratory effort and clear to auscultation bilaterally AUSCULTATION: clear to auscultation bilaterally Cardio: COMMON NORMALS: regular rate and regular rhythm RATE: regular rate RHYTHM: regular rhythm GI: COMMON NORMALS: Normal to inspection, nondistended, normoactive bowel sounds present, Soft to palpation and non-tender PALPATION: Yes Soft to palpation Extremity: COMMON NORMALS: normal to inspection GENERAL: Yes normal exam except as noted Neuro: YEMI COMA SCALE: document GCS findings [place] coma scale eye opening: Spontaneous Yemi coma scale verbal response: Orientated Yemi coma scale motor response: Obey commands [place] coma scale total score: 15 COMMON NORMALS: patient oriented x3, moves all extremities, no focal motor deficits and no sensory deficits noted SENSORIUM/ORIENTATION: Yes alert Skin: COMMON NORMALS: no rashes or lesions noted GENERAL SKIN EXAM: no rashes or lesions noted Course 2 Vital Signs: Vital signs: Vital Signs Temperature 98.2 F 08/10/23 15:59 Pulse Rate 126 H 08/10/23 15:59 Respiratory Rate 16 08/10/23 15:59 Blood Pressure 166/135 08/10/23 15:59 Pulse Oximetry 95 08/10/23 15:59 Oxygen Delivery Me thod Room Air 08/10/23 15:59 MDM - Alcohol Medical Decision Making Patient here wanting to withdraw from alcohol. He does not want hospitalization. Wants to do this at home if possible. He has had Librium in the past with good results. Will provide him a prescription for this. I will have case management set him up with a primary care provider for follow-up. Will also try to get him a sooner appointment with [facility]. Medical Records I reviewed the patient's medical records. Lab Data I reviewed the patient's lab results. 08/10/23 16:19 08/10/23 16:19 No radiology studies performed this visit Discharge Plan Discharge Patient Disposition: Home Clinical Impression: Chronic alcohol abuse Condition: Stable Prescriptions: New chlordiazepoxide HCl 25 mg capsule See Rx Instructions .ROUTE .COMPLEX Qty: 27 0RF Rx Instructions: Take 4 tabs q 6 hours on day 1. Take 2 tabs q 8 hours on day 2. Take 2 tabs q 12 hours on day 3. Take one tab daily on day 4. No Action clonidine HCl 0.1 mg tablet 0.1 mg PO BID Qty: 60 3RF Rx Instructions: Take one tablet twice per day gabapentin 300 mg capsule 300 mg PO TID Qty: 90 3RF Rx Instructions: Take one capsule three times per day Discharge Orders: Discharge ED (Routine); Ordered 08/10/23 Ordered By: Lisseth Case Referrals: Edwin Price MD [Primary Care Provider] - Patient Instructions: Alcohol Abuse, Abuse of Alcohol (DC), Alcohol Withdrawal (DC) Activity Restrictions/Additional Instructions: As we discussed do not drink while taking the Librium. I will place a case management referral to get you set up with a primary care provider and hopefully a sooner appointment with [facility]. Coding Level of Care Code ED Test Developer for Derek Sabillon
[2023-08-10 16:28] LABS: Basophils # 0.1 10^3/uL (0.0-0.1); Basophils % 0.8 %; Eosinophils # 0.1 10^3/uL (0.0-0.8); Eosinophils % 0.6 %; Hematocrit 53.8 % (37-53); Lymphocytes # 5.4 10^3/uL (0.8-4.8); Lymphocytes % 41.2 %; Mean Corpuscular HGB Conc 35.5 g/dL (30-55); Mean Corpuscular Hemoglobin 31.9 pg (27-33); Mean Corpuscular Volume 89.8 fl (82-101); Mean Platelet Volume 9.8 fL (7.4-10.4); Monocytes # 0.6 10^3/uL (0.2-0.9); Monocytes % 4.8 %; Neutrophils % 52.3 %; Nucleated Red Blood Cells % 0 %; Platelet Count 191 10^3/cmm (157-399); Red Blood Count 5.99 10^6/uL (3.85-5.65); White Blood Count 12.99 10^3/uL (3.29-11.43)
[2023-08-10 16:47] LABS: Slide Review Slide Review Perform
[2023-08-10 16:53] LABS: Alanine Aminotransferase 63 U/L (0-41); Albumin Level 4.1 g/dL (3.5-5.2); Alcohol Level 243 mg/dL (0-10); Alkaline Phosphatase 141 U/L (40-130); Anion Gap 21.8 (5-19); Aspartate Amino Transferase 77 U/L (0-40); Blood Urea Nitrogen 9 mg/dL (6-20); Calcium 8.3 mg/dL (8.5-10.5); Carbon Dioxide 22 mmol/L (22-29); Chloride 100 mmol/L (98-107); Globulin 3.1 g/dL (1.3-4.6); Glomerular Filtration Rate 66.4 mL/min (90-130); Glucose 149 mg/dL (65-115); Osmolality Calculated 291 mOsm/kg (285-295); Potassium 3.8 mmol/L (3.5-5.1); Sodium 140 mmol/L (136-145); Total Bilirubin 0.5 mg/dL (0.15-1.2); Total Protein 7.2 g/dL (6.6-8.7)
[2023-08-10 17:00] LABS: Acetaminophen < 5.0 ug/mL (10-30); Salicylate < 0.3 mg/dL (3-10)
[2023-08-10 17:21] VITALS: BP 182/117; PULSE 124; RESP 18; O2SAT 95
--- NOTE | 2023-08-11 08:28 | DCPLANNER ---
Messag sent to [facility] and Message sent to [facility] for a sooner appointment
== END 2023-08-10 17:28 | disposition home or self-care (01) ==
PROVIDERS: Emergency Provider Physician Assistant; PCP Family Medicine
DX: F10.10 Alcohol abuse, uncomplicated (principal); Z72.0 Tobacco use
CPT/HCPCS: 36415; 80053; 80307; 85025; 99283

== ENCOUNTER 2024-12-05 12:13 | Emergency (ER) | payer MEDICAID, SELFPAY ==
[2024-12-05] VITALS (7 sets, daily range): BP systolic 124–147; BP diastolic 92–104; PULSE 84–95; RESP 16; TEMP 36.7; O2SAT 96–100
--- NOTE | 2024-12-05 12:59 | ECG_ITS ---
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
--- NOTE | 2024-12-05 12:59 | XR_ITS ---
WS: [id number] Exam: XR chest 1V portable [id number] Date/Time of Exam: 12/05/2024 1:20 PM Reason For Exam: chest pain Comparison 05/03/2019. Lungs are fully inflated and clear. Normal cardiomediastinal silhouette and regional bony elements. No pleural effusion. XR/XR chest 1V portable [id number] IMPRESSION: 1. Negative chest.
--- NOTE | 2024-12-05 13:00 | ED_ITS ---
HPI - Dizziness 2 General: Chief Complaint: Dizziness Stated Complaint: Weakness, Dizzy Time Seen by Provider: 12/05/24 12:58 History of Present Illness: HPI Narrative: 44-year-old male presents emergency room complaining of dizziness left arm numbness. He has had these intermittently in the past.. He associates these episodes with his blood pressure being elevated. He has a history of alcohol use in the past as well. He has not been drinking. He is on clonidine for blood pressure and talking to him when he went through treatment I started him on clonidine and his blood pressure went up a few months ago they increase his clonidine he has not been on anything else for blood pressure. No chest pain with these episodes. Associated symptoms: Denies chest pain or chills Related Data Home Medications ?Medication ?Instructions ?Recorded ?Confirmed aspirin 81 mg tablet,delayed 81 mg PO DAILY 12/05/24 0 12/05/24 release (Maria Luz Low Dose Aspirin) clonidine HCl 0.2 mg tablet 0.2 mg PO BID 12/05/24 gabapentin 400 mg capsule 400 mg PO TID 12/05/2412/05 Previous Rx's ?Medication ?Instructions ?Recorded amlodipine 5 mg tablet 5 mg PO DAILY #30 tabs 12/05 clonidine HCl 0.1 mg tablet 0.1 mg PO BID #28 tabs Allergies Allergy/AdvReac Type Severity Reaction Status Date / Time almond Allergy Unknown Verified 08/19/23 14:19 walnut Allergy Unknown Verified 08/19/23 14:19 Review of Systems 2 Const: Denies: fever(s) or chills Card: Denies: chest pain Resp: Denies: dyspnea GI: Denies: abdominal pain : Denies: dysuria, urinary frequency or urinary urgency Musc: Denies: neck pain or back pain Skin/Breast: Denies: rash PFSH ED 2 PFSH: Medical History Cigarette nicotine dependence Chronic post-traumatic stress disorder Alcohol dependence with alcohol-induced mood disorder Generalized anxiety disorder Family History Other Cancer Social History Smoking and tobacco/nicotine status: current every day tobacco/nicotine user cigarettes Packs smoked per day: 0.5 Years cigarettes smoked: 25 Quit status (tobacco/nicotine): considering quitting Second hand smoke exposure: No Physical Exam 2 Const: COMMON NORMALS: no acute distress GENERAL APPEARANCE: cooperative and comfortable ORIENTATION/CONSCIOUSNESS: Yes awake, Yes oriented to person, Yes oriented to place and Yes oriented to time HENMT: COMMON NORMALS: normocephalic, atraumatic and hearing grossly normal bilaterally HEAD & SCALP: normocephalic and atraumatic Resp: COMMON NORMALS: normal respiratory effort, No retractions, No use of accessory muscles and clear to auscultation bilaterally AUSCULTATION: clear to auscultation bilaterally Cardio: COMMON NORMALS: regular rate, regular rhythm and No murmurs present (Cardio) RATE: regular rate RHYTHM: regular rhythm GI: COMMON NORMALS: Soft to palpation and No hepatosplenomegaly present A USCULTATION: Yes normoactive bowel sounds PALPATION: Yes Soft to palpation, No Tenderness to palpation present (GI), No Guarding due to palpation present (GI) and Yes No hepatosplenomegaly present Extremity: COMMON NORMALS: normal to inspection, capillary refill normal, no clubbing, cyanosis or edema, no calf tenderness and no pedal edema Neuro: SENSORIUM/ORIENTATION: Yes oriented to person, Yes oriented to place and Yes oriented to time Skin: COMMON NORMALS: no rashes or lesions noted GENERAL SKIN EXAM: no rashes or lesions noted Course 2 Vital Signs: Vital signs: Vital Signs Temperature 98.0 F 12/05/24 12:15 Pulse Rate 92 12/05/24 16:00 Respiratory Rate 16 12/05/24 12:15 Blood Pressure 131/95 12/05/24 16:00 Pulse Oximetry 97 12/05/24 16:00 Oxygen Delivery Me thod Room Air 12/05/24 12:15 MDM - Dizziness Medical Decision Making Elevated liver enzyme follow-up with his primary care doctor. For his blood pressure and he be better served to be off of the clonidine. Will have him decrease to clonidine 0.1 twice daily add amlodipine 5 mg daily and then he needs follow-up with his doctor within the next 7 to 10 days and look at further tapering off the clonidine and putting him on horcu higher dose of amlodipine or adding a second medication along with it such as Toprol or lisinopril. He is not having any abdominal pain at this time suspect the elevated liver enzymes are from his history of alcohol use. Medical Records I reviewed the patient's medical records. Lab Data I reviewed the patient's lab results. 12/05/24 13:07 12/05/24 13:07 Radiology Impressions Chest X-Ray 12/05/24 12:59 IMPRESSION: 1. Negative chest. Head CT 12/05/24 13:10 IMPRESSION: Negative head CT. Laboratory Results WBC 8.26 10^3/uL (3.29-11.43) 12/05/24 13:07 RBC 3.95 10^6/uL (3.85-5.65) 12/05/24 13:07 Hgb 12.10 g/dL (11.27-16.99) 12/05/24 13:07 Hct 35.1 % (37-53) L 12/05/24 13:07 MCV 88.9 fl (82-101) 12/05/24 13:07 MCH 30.6 pg (27-33) 12/05/24 13:07 MCHC 34.5 g/dL (30-55) 12/05/24 13:07 RDW 13.7 % (12.1-15.1) 12/05/24 13:07 Plt Count 151 10^3/cmm (157-399) L 12/05/24 13:07 MPV 10.3 fL (7.4-10.4) 12/05/24 13:07 Neut % (Auto) 54.9 % 12/05/24 13:07 Lymph % (Auto) 27.8 % 12/05/24 13:07 Armstrong % (Auto) 13.4 % 12/05/24 13:07 Eos % (Auto) 2.2 % 12/05/24 13:07 Baso % (Auto) 0.7 % 12/05/24 13:07 Neut # (Auto) 4.53 10^3/uL (1.8-7.7) 12/05/24 13:07 Lymph # (Auto) 2.3 10^3/uL (0.8-4.8) 12/05/24 13:07 Armstrong # (Auto) 1.1 10^3/uL (0.2-0.9) H 12/05/24 13:07 Eos # (Auto) 0.2 10^3/uL (0.0-0.8) 12/05/24 13:07 Baso # (Auto) 0.1 10^3/uL (0.0-0.1) 12/05/24 13:07 Nucleated RBC % (auto) 0 % 12/05/24 13:07 Nucleated RBCs # 0.0 /100WBC 12/05/24 13:07 Sodium 138 mmol/L (136-145) 12/05/24 13:07 Potassium 3.8 mmol/L (3.5-5.1) 12/05/24 13:07 Chloride 104 mmol/L (98-107) 12/05/24 13:07 Carbon Dioxide 23 mmol/L (22-29) 12/05/24 13:07 Anion Gap 14.8 (5-19) 12/05/24 13:07 BUN 8 mg/dL (6-20) 12/05/24 13:07 Creatinine 1.1 mg/dL (0.7-1.2) 12/05/24 13:07 GFR Calculation 72.7 mL/min (90-130) L 12/05/24 13:07 Glucose 94 mg/dL (65-115) 12/05/24 13:07 Calculated Osmolality 284 mOsm/kg (285-295) L 12/05/24 13:07 Calcium 8.2 mg/dL (8.5-10.5) L 12/05/24 13:07 Total Bilirubin 0.3 mg/dL (0.15-1.2) 12/05/24 13:07 AST 208 U/L (0-40) H 12/05/24 13:07 ALT 185 U/L (0-41) H 12/05/24 13:07 Alkaline Phosphatase 104 U/L (40-130) 12/05/24 13:07 Troponin T Baseline 10 ng/L (0-15) 12/05/24 13:07 Troponin T 120 Minute 9.37 ng/L (0-15) 12/05/24 15:04 Delta Troponin T -0.63 ABS# (0-10) L 12/05/24 15:04 Total Protein 5.5 g/dL (6.6-8.7) L 12/05/24 13:07 Albumin 3.5 g/dL (3.5-5.2) 12/05/24 13:07 Globulin 2.0 g/dL (1.3-4.6) 12/05/24 13:07 Lipase 45 U/L (13-60) 12/05/24 13:07 All radiology interpretation(s) finalized by discharge Discharge Plan Discharge Patient Disposition: Home Clinical Impression: Hypertension, Elevated LFTs Condition: Stable Prescriptions: New clonidine HCl 0.1 mg tablet 0.1 mg PO BID Qty: 28 0RF amlodipine 5 mg tablet 5 mg PO DAILY Qty: 30 0RF No Action gabapentin 400 mg capsule 400 mg PO TID aspirin [Maria Luz Low Dose Aspirin] 81 mg Tablet,Delayed Release (Dr/Ec) 81 mg PO DAILY clonidine HCl 0.2 mg tablet 0.2 mg PO BID Discharge Orders: Discharge ED (Routine); Ordered 12/05/24 Ordered By: Uriah Patel Referrals: Edwin Price MD [Primary Care Provider, Family Practice] Discharge Diet: Usual diet Discharge Activity: Resume usual activity Patient Instructions: Opioid Safety, Pain Management Activity Restrictions/Additional Instructions: Thank you for choosing [facility] for your healthcare needs today. It is very important that you follow up as instructed or that you return to the Emergency Department should you have concerns or if your condition changes or worsens in any way. You are seen in the emergency room with complaints of elevated blood pressure and feeling dizzy. Your blood pressure improved while you are in the emergency room after taking your medicines at home. Your laboratory tests and imaging were otherwise unremarkable. Suspect some of your symptoms may be due to elevated blood pressure and some may be due to side effects your medications. Recommend that you decrease the clonidine to 0.1 twice a day and follow-up with your doctor within the next 7 to 14 days to discuss further changes. May be beneficial to taper off the clonidine completely and transition to other medications to control your blood pressure that have fewer side effects and better blood pressure control throughout the day. Clonidine tends to have significant number of side effects and rebound hypertension associated with it. Recommended that when you decrease the clonidine you add amlodipine 5 mg daily take 1 tablet tonight then take 1 daily. Print Language: Citizen Of [place] Coding Level of Care Code ED Tub Rider for Derek Sabillon
--- NOTE | 2024-12-05 13:10 | CT_ITS ---
WS: [id number] CT HEAD NONCONTRAST HISTORY: Elevated blood pressure dizziness TECHNIQUE: Contiguous axial imaging performed through the brain. Bone and soft tissue windows. Sagittal and coronal reformats reviewed. All CT scans at [facility] use at least one of these dose optimization techniques: automated exposure control; mA and/or kV adjustment per patient size (includes targeted exams where dose is matched to clinical indication); or iterative reconstruction. DLP: 1274.08 mGy.cm COMPARISON: None available. No acute intracranial hemorrhage, midline shift or mass effect. No atrophy or prior infarcts or herniation. Ventricles: Normal size with no hydrocephalus. Paranasal sinuses: As visualized are clear. Mastoid air cells: Well pneumatized. Calvarium and scalp: Skull is intact with no soft tissue edema or swelling. CT/CT head wo con* [id number] IMPRESSION: Negative head CT.
[2024-12-05 13:21] LABS: Basophils # 0.1 10^3/uL (0.0-0.1); Basophils % 0.7 %; Eosinophils # 0.2 10^3/uL (0.0-0.8); Eosinophils % 2.2 %; Hematocrit 35.1 % (37-53); Lymphocytes # 2.3 10^3/uL (0.8-4.8); Lymphocytes % 27.8 %; Mean Corpuscular HGB Conc 34.5 g/dL (30-55); Mean Corpuscular Hemoglobin 30.6 pg (27-33); Mean Corpuscular Volume 88.9 fl (82-101); Mean Platelet Volume 10.3 fL (7.4-10.4); Monocytes # 1.1 10^3/uL (0.2-0.9); Monocytes % 13.4 %; Neutrophils # 4.53 10^3/uL (1.8-7.7); Neutrophils % 54.9 %; Nucleated Red Blood Cells % 0 %; Platelet Count 151 10^3/cmm (157-399); Red Blood Count 3.95 10^6/uL (3.85-5.65); Red Cell Distribution Width 13.7 % (12.1-15.1); White Blood Count 8.26 10^3/uL (3.29-11.43)
[2024-12-05] MEDS: aspirin 81 mg Chew Tablet 324 MG PO (13:23)
[2024-12-05 13:47] LABS: Troponin(5th) Baseline 10 ng/L (0-15)
[2024-12-05 13:52] LABS: Alanine Aminotransferase 185 U/L (0-41); Albumin Level 3.5 g/dL (3.5-5.2); Alkaline Phosphatase 104 U/L (40-130); Aspartate Amino Transferase 208 U/L (0-40); Blood Urea Nitrogen 8 mg/dL (6-20); Calcium 8.2 mg/dL (8.5-10.5); Carbon Dioxide 23 mmol/L (22-29); Chloride 104 mmol/L (98-107); Glomerular Filtration Rate 72.7 mL/min (90-130); Glucose 94 mg/dL (65-115); Lipase 45 U/L (13-60); Osmolality Calculated 284 mOsm/kg (285-295); Sodium 138 mmol/L (136-145); Total Bilirubin 0.3 mg/dL (0.15-1.2); Total Protein 5.5 g/dL (6.6-8.7)
[2024-12-05 13:55] LABS: Anion Gap 14.8 (5-19); Potassium 3.8 mmol/L (3.5-5.1)
--- NOTE | 2024-12-05 14:59 | ECG_ITS ---
[facility] Test Date: 2024-12-05 Pat Name: Warner Bermudez Department: Room: Gender: Male Neurological Surgeon: : 1980 Requested By: Uriah Carvajal Order Number: [id number] Reading MD: FRAN GREGORY Measurements Intervals Cando Rate: 84 P: 46 CO: 124 QRS: 58 QRSD: 90 T: 16 QT: 351 QTc: 416 Interpretive Statements SINUS RHYTHM Compared to ECG 12/05/2024 12:21:58 Short CO interval no longer present Electronically Signed On 12-07-2024 23:43:06 CDT by FRAN GREGORY [email or web address]
[2024-12-05 15:40] LABS: Troponin 5 2HR 9.37 ng/L (0-15)
[2024-12-05 15:41] LABS: Troponin 5 2HR Delta -0.63 ABS# (0-10)
== END 2024-12-05 16:00 | disposition home or self-care (01) ==
PROVIDERS: Emergency Provider Family Medicine; PCP Family Medicine
DX: I10 Essential (primary) hypertension (principal); R74.01 Elevation of levels of liver transaminase levels; Z79.82 Long term (current) use of aspirin
CPT/HCPCS: 36415; 70450; 71045; 80053; 83690; 84484; 85025; 93005; 99285; J9999

== ENCOUNTER 2025-06-25 19:54 | Emergency (ER) | payer MEDICAID, SELFPAY ==
[2025-06-25 20:02] VITALS: BP 137/86; PULSE 123; TEMP 36.7; O2SAT 93
--- NOTE | 2025-06-25 20:15 | XRR_ITS ---
PROCEDURE INFORMATION: Exam: XR Chest Exam date and time: 06/25/2025 8:31 PM Age: 44 years old Clinical indication: Other: Medical clearance TECHNIQUE: Imaging protocol: Radiologic exam of the chest. Views: 1 view. COMPARISON: CR XR chest 1V portable [id number] 12/05/2024 1:13 PM FINDINGS: Lungs: Right mid lung field atelectasis. Pleural spaces: Unremarkable. No pleural effusion. No pneumothorax. Heart/Mediastinum: Unremarkable. No cardiomegaly. Bones/joints: Unremarkable. XR/XR chest 1V portable [id number] IMPRESSION: Right mid lung field atelectasis.
--- NOTE | 2025-06-25 22:10 | PC.NURSE ---
PT refuses all care. Pt continues to leave room and try to leave the ED unit. PT is non-compliant.
--- NOTE | 2025-06-26 00:42 | ED_ITS ---
HPI - Alcohol General: Chief Complaint: Alcohol Stated Complaint: MHE\Drunk\SI History of Present Illness: 44-year-old male past medical history si gnificant for hypertension noncompliant with antihypertensives and EtOH abuse presenting the emergency department with alcohol intoxication secondary to a 4-day history of binge alcohol consumption after patient was left by his fianc?e 4 days ago. Patient brought in by his ex- who from him 5 years ago when she found him drinking in her house, she reports that she is concerned he may not be safe, reports that she thinks he is drinking himself to . When I asked further patient himself denies any homicidal or suicidal ideation, reports that he is drinking due to being sad about his fianc?e leaving him, and upon obtaining collateral information from the ex- she also endorses that he made no specific threats or endorsed any specific ideation towards suicidal attempts or thoughts. Patient has previously been in detox/rehab several times most recently a few years ago. Related Data Home Medications ?Medication ?Instructions ?Recorded ?Confirmed aspirin 81 mg tablet,delayed 81 mg PO DAILY 12/05/24 0 02/01/25 release (Maria Luz Low Dose Aspirin) Previous Rx's ?Medication ?Instructions ?Recorded amlodipine 2.5 mg tablet 2.5 mg PO BID #60 tabs 02/01 gabapentin 400 mg capsule 400 mg PO TID 90 days #270 c aps 02/01/25 Allergies Allergy/AdvReac Type Severity Reaction Status Date / Time almond Allergy Unknown Verified 06/25/25 20:07 walnut Allergy Unknown Verified 06/25/25 20:07 [facility] ED PFSH: Medical History Cigarette nicotine dependence without complication Chronic post-traumatic stress disorder Alcohol dependence with alcohol-induced mood disorder Generalized anxiety disorder Family History Other Cancer Social History Smoking and tobacco/nicotine status: current every day tobacco/nicotine user cigarettes Packs smoked per day: 0.5 Years cigarettes smoked: 25 Quit status (tobacco/nicotine): considering quitting Second hand smoke exposure: No Physical Exam Narrative: EXAM NARRATIVE: Gen: A&Ox4, no acute distress, nontoxic appearing, appears intoxicated HEENT: Normocephalic, atraumatic, no scleral icterus, external ears normal, moist mucous membranes Neck: Supple, full range of motion, no observable masses Lungs: No Respiratory distress, Lungs clear to auscultation bilaterally no rales, rhonchi, wheezing CV: Tachycardic with regular rhythm, no murmur, no pitting edema to lower extremities bilaterally Abdomen: Soft, nondistended, nontender to palpation MSK: No joint swelling, FROM all 4 extremities Skin: No rashes, petechiae, lesions. Normal color per patient. Neuro: Alert and oriented, no slurred speech, sensation and strength grossly intact all 4 extremities, ambulates with a steady gait Psych: Appropriate for situation. Course Vital Signs: Vital signs: Vital Signs Temperature 98.1 F 06/25/25 20:02 Pulse Rate 123 H 06/25/25 20:02 Blood Pressure 137/86 06/25/25 20:02 Pulse Oximetry 93 06/25/25 20:02 Oxygen Delivery Me thod Room Air 06/25/25 20:02 MDM - Alcohol Medical Decision Making 44-year-old male with a history of hypertension and alcohol abuse presenting to the emergency department with 4-day history of severe alcohol intoxication/binge drinking secondary to family stress, reports that his fianc?e just left him 4 days ago and was drinking at his ex-'s house after they 5 years ago, ex- provides collateral information the patient has an extensive drinking history, she feels that he is not safe and that he is drinking himself to . Based on collateral information obtained from the ex- as well as direct history from the patient, there does not appear to be any evidence of active threats to commit self-harm and patient himself is denying homicidal or suicidal ideation, he does admit to excessive drinking secondary to his recent stressors, he does not appear acutely psychotic, at this time he is mild to moderately intoxicated on arrival but is otherwise ambulatory and providing a cohesive history, he does not appear to meet criteria for involuntary psychiatric hospitalization for self-harm at this time, I do recommend he obtain alcohol detoxification/rehabilitation services and I offered him outpatient referrals for same, I did recommend blood work to assess his liver and kidney function however after approximately 1-1/2 hours in the ER patient became restless and decided he wanted to leave the ER without waiting for these lab test to return. He will be discharged AGAINST MEDICAL ADVICE with strong recommendation follow-up with his PCP and outpatient alcohol rehabilitation services, the ex- was counseled that if the patient endorses any active thoughts of self-harm or appear psychotic or otherwise unsafe that she should contact the police department and 911 for further evaluation. Chest x-ray with mild atelectasis of the right midlung field, patient denies fever or cough, suspect unlikely aspiration pneumonia at this time no indication for antibiotics. Lab Data Radiology Impressions Chest X-Ray 06/25/25 20:15 IMPRESSION: Right mid lung field atelectasis. All radiology interpretation(s) finalized by discharge ED provider radiology interpretation(s): Chest x-ray with some mild atelectasis to the right midlung field Discharge Plan Discharge Patient Disposition: Home Clinical Impression: Alcohol dependence with alcohol-induced mood disorder, Alcoholic intoxication Condition: Fair Prescriptions: No Action amlodipine 2.5 mg tablet 2.5 mg PO BID Qty: 60 1RF gabapentin 400 mg capsule 400 mg PO TID 90 Days Qty: 270 1RF aspirin [Maria Luz Low Dose Aspirin] 81 mg Tablet,Delayed Release (Dr/Ec) 81 mg PO DAILY Discharge Orders: Discharge ED (Routine); Ordered 06/25/25 Ordered By: Michi Burkett Patient Instructions: Patient Portal & Rose Instructions, Alcohol Intoxication (ED) Print Language: Upper Sorbian Coding Level of Care Code ED Press Operator Printing for Derek Sabillon
== END 2025-06-25 22:12 | disposition home or self-care (01) ==
PROVIDERS: Emergency Provider Student in an Organized Health Care Education/Training Program
DX: F10.24 Alcohol dependence with alcohol-induced mood disorder (principal); Z79.82 Long term (current) use of aspirin; F17.210 Nicotine dependence, cigarettes, uncomplicated
CPT/HCPCS: 71045; 99283